=== PATIENT | female | born 1980 | race Caucasian/White ===

== ENCOUNTER 2020-01-23 15:54 | Emergency (ER) | payer BC, SELFPAY ==
[2020-01-23 15:55] VITALS: BP 109/72; PULSE 99; RESP 16; TEMP 36.6; O2SAT 99
--- NOTE | 2020-01-23 16:14 | ED.ABDPAIN ---
HPI - Abdominal Pain General Chief Complaint: Headache <Apolinar Lopez PA-C - Last Filed: 01/23/20 17:50> Stated Complaint: migraine <Apolinar Lopez PA-C - Last Filed: 01/23/20 17:50> Time Seen by Provider: 01/23/20 16:03 <Apolinar Lopez PA-C - Last Filed: 01/23/20 17:50> Source: patient <Apolinar Lopez PA-C - Last Filed: 01/23/20 17:50> Mode of arrival: ambulatory <Apolinar Lopez PA-C - Last Filed: 01/23/20 17:50> Limitations: no limitations <Apolinar Lopez PA-C - Last Filed: 01/23/20 17:50> History of Present Illness HPI narrative: Patient is a 39-year-old female who presents to emergency department for evaluation of migraine headache with history of migraines has been present for 2 days took Imitrex and Toradol with no improvement patient denies injury trauma or recent illness notes that she has had some associated nausea and emesis. Patient on arrival in mild acute pain distress. <Apolinar Lopez PA-C - Last Filed: 01/23/20 17:50> Related Data Allergies/Adverse Reactions: Allergies Allergy/AdvReac Type Severity Reaction Status Date / Time Penicillins Allergy Unknown Unknown Verified 01/23/20 16:24 vortioxetine Allergy Unknown Unknown Verified 01/23/20 16:24 <Apolinar Lopez PA-C - Last Filed: 01/23/20 17:50> Review of Systems Review of Systems: All systems reviewed & are unremarkable except as noted in HPI and below <Apolinar Lopez PA-C - Last Filed: 01/23/20 17:50> PMFSH Past Medical History Medical History: Medical History Migraine headache <Apolinar Lopez PA-C - Last Filed: 01/23/20 17:50> Social History Social History: Social History Smoking status: Never smoker Alcohol intake: current <MEGAN Salazar Last Filed: 01/23/20 17:50> Exam Narrative: Exam Narrative: GENERAL: Well-appearing, well-nourished, and in mild acute pain distress. HEAD: Normocephalic, atraumatic. EYES: PERRLA and EOMI. ENT: Nares clear, no rhinorrhea or epistaxis. Mucous membranes moist. Oropharynx without tonsillar hypertrophy exudate or other lesions. NECK: Supple. No adenopathy or masses. CHEST: Clear to auscultation. No respiratory distress. No wheezes rales or rhonchi HEART: Regular rate and rhythm. No murmur heard. EXTREMITIES: Normal range of motion. No edema. SKIN: Warm, dry, no rash. NEURO: No focal deficits. Alert and oriented x3. Cranial nerves II through XII grossly intact. PSYCH: Normal mood and affect. <MEGAN Salazar Last Filed: 01/23/20 17:50> Course Course Emergency Course: Patient in the room in no distress sleeping made aware of recommendations for follow-up with primary care nontoxic afebrile without emesis <MEGAN Salazar Last Filed: 01/23/20 17:50> Vital Signs Vital signs: Vital Signs Temperature 97.8 F 01/23/20 15:55 Pulse Rate 99 01/23/20 15:55 Respiratory Rate 16 01/23/20 15:55 Blood Pressure 109/72 01/23/20 15:55 Pulse Oximetry 99 01/23/20 15:55 Temperature 97.8 F 01/23/20 15:55 Pulse Rate 65 01/23/20 18:05 Respiratory Rate 14 01/23/20 18:05 Blood Pressure 132/85 01/23/20 18:05 Pulse Oximetry 100 01/23/20 18:05 <MEGAN Salazar Last Filed: 01/23/20 17:50> Vital Signs Temperature 97.8 F 01/23/20 15:55 Pulse Rate 99 01/23/20 15:55 Respiratory Rate 16 01/23/20 15:55 Blood Pressure 109/72 01/23/20 15:55 Pulse Oximetry 99 01/23/20 15:55 Temperature 97.8 F 01/23/20 15:55 Pulse Rate 65 01/23/20 18:05 Respiratory Rate 14 01/23/20 18:05 Blood Pressure 132/85 01/23/20 18:05 Pulse Oximetry 100 01/23/20 18:05 <Shelley Vigil MD - Last Filed: 02/06/20 13:10> MDM - Abdominal Pain MDM Narrative Medical decision making narrative: Patients headache was not
[2020-01-23] MEDS: KETOROLAC 30 MG/ML VIAL (*BKC) IV PUSH (16:24)
[2020-01-23] MEDS: SODIUM CHLORIDE 0.9% IV 1,000 ML 999 ML IV CONT (16:25)
[2020-01-23] MEDS: PROCHLORPERAZINE EDISYLATE 10 MG/2 ML VIAL IV PUSH (16:25)
[2020-01-23] MEDS: MAGNESIUM SULF 2 GM/WATER 50ML 2 GM/50 ML BAG IVPB (17:45)
--- NOTE | 2020-01-23 18:00 | PC.NURSE ---
Pt states If you arent going to give me pain meds, get me out of here now. Discussed POC w/ pt, who states Well none of that is gonna work, normally they just give me a pain shot and let me go home and sleep. Get my papers, Im outta here. Romaine GUZMAN aware.
[2020-01-23 18:05] VITALS: BP 132/85; PULSE 65; RESP 14; O2SAT 100
== END 2020-01-23 18:07 | disposition home or self-care (01) ==
PROVIDERS: Emergency Provider Emergency Medicine; PCP Nurse Practitioner Family
DX: G43.909 Migraine, unspecified, not intractable, without status migrainosus (principal)
CPT/HCPCS: 96361; 96365; 96375; 99284; J0780; J1200; J1885; J3475; J7030

== ENCOUNTER 2021-12-01 10:48 | Outpatient (CLI) | payer BC, SELFPAY ==
[2021-12-01 11:20] LABS: Basophils Absolute Auto 0.1 K/mm3 (0.0-0.1); Basophils Percent Auto 0.8 % (0.2-1.2); Eosinophils Absolute Auto 0.2 K/mm3 (0-0.3); Eosinophils Percent Auto 1.8 % (0-4.4); Hematocrit 41.3 % (37.0-47.0); Immature Granulocyte Absolute 0.02 K/mm3 (0.00-0.031); Immature Granulocyte Percent A 0.2 % (0-0.5); Lymphocytes Absolute Auto 3.42 K/mm3 (0.9-3.2); Lymphocytes Percent Auto 40.4 % (18.3-44.2); Mean Corpuscular HGB Conc 33.9 g/dl (32-36); Mean Corpuscular Hemoglobin 32.3 pg (26-34); Mean Corpuscular Volume 95.2 fl (80-100); Mean Platelet Volume 9.4 fl (7.4-10.4); Monocytes Absolute Auto 0.5 K/mm3 (0.1-0.6); Neutrophils Absolute Auto 4.3 K/mm3 (1.3-6.7); Neutrophils Percent Auto 50.8 % (45.5-73.1); Platelet Count Result 513 k/mm3 (150-375); Red Blood Count 4.34 M/mm3 (4.2-5.4); Red Cell Distribution Width 14.5 % (11.5-14.5); White Blood Count 8.5 K/mm3 (4.5-10.0)
[2021-12-01 11:25] LABS: Add Urine Microscopic? YES; Appearance Urine Cloudy (Clear); Bilirubin Urine Negative (Negative); Blood Urine 2+ (Negative); Color Urine Yellow (Yellow); Glucose Urine UA Negative (Negative); Ketones Urine Negative (Negative); Leukocyte Esterase Ur Trace LEU/UL (NEGATIVE); Mucus Urine Rare /lpf; Nitrate Urine Negative (Negative); Protein Urine Negative (Negative); Specific Grav Ur 1.018 (1.001-1.035); Squamous Epithelial Cell Urine Rare /hpf (Few); Urobilinogen Urine Negative mg/dL (<2.0); WBC Urine 0-3 /hpf (0-3)
[2021-12-01 11:31] LABS: Alanine Aminotransferase 23 U/L (4-35); Albumin Level 4.3 g/dL (3.5-5.1); Alkaline Phosphatase 118 U/L (38-126); Anion Gap 8 mmol/L (8-16); Aspartate Amino Transferase 27 U/L (14-36); Bilirubin,Total 0.2 mg/dL (0.2-1.3); Blood Urea Nitrogen 12 mg/dL (7-17); Calcium 9.1 mg/dL (8.4-10.2); Carbon Dioxide 24 mmol/L (22-30); Chloride 107 mmol/L (98-107); Cholesterol 227 mg/dL (0-200); Estimated Glomerular Filt Rate > 60; Glucose 105 mg/dL (65-110); HDL Direct 46 mg/dL; Potassium 4.4 mmol/L (3.4-5.0); Sodium 139 mmol/L (137-145); Triglycerides 95 mg/dL (<150)
[2021-12-01 11:41] LABS: Amphetamine Screen Urine Positive (Negative); Barbiturate Screen Urine Negative (Negative); Benzodiazepines Screen Urine Negative (Negative); Cannabinoid Screen Urine Positive (Negative); Cocaine Screen Urine Negative (Negative); Hemoglobin A1C 5.1 % (<5.7); Methadone Screen Urine Negative (Negative); Opiate Screen Urine Negative (Negative); Phencyclidine Screen Urine Negative (Negative)
[2021-12-01 11:43] LABS: LDL Cholesterol Direct 147 mg/dL
== END 2021-12-01 10:49 | disposition home or self-care (01) ==
LOC: ANHLAB 10:54
PROVIDERS: PCP Nurse Practitioner Family
DX: Z79.899 Other long term (current) drug therapy (principal)
CPT/HCPCS: 36415; 80053; 80061; 80307; 81001; 83036; 84443; 85025

== ENCOUNTER 2022-11-15 09:00 | Outpatient (CLI) | payer BC, SELFPAY ==
--- NOTE | 2022-11-15 11:00 | NEURO_ITS ---
Impression: Patient reports a history of numbness in both hands, right more than left. # Normal nerve conduction study. # Normal needle/EMG exam. # Clinical correlation recommended. Motor Nerve Conduction Upper Extremities Median Nerve Conduction Velocity (m/sec) Terminal Latency (msec) Response Voltage(mV) Elbow-Wrist Wrist Elbow Wrist Right 60 3.1 5 9 Left 60 2.9 4 6 Ulnar Nerve Conduction Velocity (m/sec) Terminal Latency (msec) Response Voltage(mV) Above Elbow Below Elbow Wrist Above Elbow Below Elbow Wrist Right 59 58 2.0 5 6 6 Left 57 58 2.2 5 5 6 F-Wave Latency Median (ms) Ulnar (ms) Right 25.6 25.0 Left 26.1 25.5 Sensory Nerve Conduction Upper Extremities Median Nerve Stimulation Terminal Latency (msec) Wrist/Digit Response Voltage (uV) Wrist Right 2.8/2.9 68/69 Left 2.7/2.8 65/62 Ulnar Nerve Stimulation Terminal Latency (msec) Wrist/Digit Response Voltage (uV) Wrist Right 2.4 49 Left 2.3 77 Radial Nerve Terminal Latency (msec) Response Voltage(mV) Right 1.7 45 Left 2.0 45 Left Right Muscles Examined Fibrillation Fasciculation Scarcity Voltage Duration Left Right Left Right Left Right Left Right Left Right Deltoid Biceps X X Brachioradialis Triceps X X Pronator Teres X X Ext Indicis X X Ext Digitorum X X Abd Poll Brev X X 1st Dorsal Interosseus Paraspinals MTDD
== END 2022-11-15 09:01 | disposition home or self-care (01) ==
PROVIDERS: PCP Nurse Practitioner Family; Visit Provider Nurse Practitioner Family
DX: M25.531 Pain in right wrist (principal); M25.532 Pain in left wrist
CPT/HCPCS: 95886; 95911

== ENCOUNTER 2023-01-04 12:51 | Outpatient (CLI) | payer BC, SELFPAY ==
--- NOTE | 2023-01-04 12:58 | ECG_ITS ---
Measurements Intervals [place] Rate: 72 P: 39 NV: 146 QRS: 13 QRSD: 89 T: 17 QT: 395 QTc: 435 Interpretive Statements SINUS RHYTHM LOW QRS VOLTAGE IN PRECORDIAL LEADS BORDERLINE ECG COMPARED TO ECG 02/03/2019 11:37:09 NO SIGNIFICANT CHANGES Electronically Signed On 01-05-2023 14:58:26 CDT by Nestor Kelley M.D.
== END 2023-01-04 12:52 | disposition home or self-care (01) ==
LOC: ANHSURGERY 12:55
PROVIDERS: PCP Nurse Practitioner Family; Visit Provider Obstetrics & Gynecology
DX: N87.9 Dysplasia of cervix uteri, unspecified (principal); F17.210 Nicotine dependence, cigarettes, uncomplicated; Z01.818 Encounter for other preprocedural examination; R94.31 Abnormal electrocardiogram [ECG] [EKG]
CPT/HCPCS: 36415; 86850; 86900; 86901; 93005

== ENCOUNTER 2023-01-09 01:50 | Day surgery (SDC) | payer BC, SELFPAY ==
[2023-01-02 11:35] VITALS: BMI 35.4
--- NOTE | 2023-01-02 11:42 | PC.NURSE ---
Report to the Outpatient Waiting Room, entrance under the green pavilion located off [facility], at time 10:00 on date 01/09/23. Planned Procedure Time: 12:00. Time changes happen often and if your time is changed the preop area will call you the afternoon before. - You and your visitor will be asked to self-screen and do not enter if you have any COVID symptoms. - Only one visitor is requested with a max of two and NO children visitors are allowed at this time. - The patient visitor may be requested to leave or wait in car when not with patient due to distancing restrictions. - A mask is optional within the hospital at this time. Patients may have clear liquids (water, carbonated beverages, clear teas, apple juice) until 3 hours prior to surgery (9:00) with a maximum of 20 ounces. - No food from midnight until time of surgery Take the following medications with a SIP of water the morning of surgery: RUTHANN LIM DO NOT STOP ANY OF YOUR OTHER PRESCRIPTION MEDICATIONS PRIOR TO SURGERY?EXCEPT THE FOLLOWING Medications to discontinue per physician: N/A Date to take last dose: N/A Please no make-up, nail mosotho, hairspray, perfume, deodorant, or body powder the day of surgery. No jewelry (including any body piercings) or valuables the day of surgery, leave them at home. Please take a shower or bath the night before, or the morning of, surgery with an antibacterial soap. Wear comfortable, loose fitting clothing. - Jewelry must be removed prior to entering the operating room. Rings and piercings that are not removed may be cut off. - The hospital will not accept responsibility for valuables. - Please leave all valuables, including medications, at home the day of surgery. If you are going home after surgery, a licensed line haul truck driver must drive you home. - NO public transportation without another adult if you receive anesthesia. - We recommend that an adult stay with you for 24 hours following discharge. - We also recommend that you do not drive, make important decision, drink alcoholic beverages, or take any drugs that were not prescribed by your health care provider for at least 24 hours after your discharge time. Follow any additional instructions given to you from your surgeon. If you or anyone in your household have experienced Covid symptoms in the past week, please notify your surgeon or the nurse liaison at the phone number below for possible testing. Telephone instructions given to MATTHEW FELIX and asked if any additional questions and then verbalized understanding. Patient advised to call surgeon office or pre surgery nurse liaison [phone] if any additional questions.
--- NOTE | 2023-01-08 12:26 | PCCCNOTE ---
Per pre-reg notes, CPT codes require prior authorization, called to Dr. Simon' office was lunch time and went to paging, she transferred to office VM. Left VM requesting follow up and return call from office regarding authorization.
--- NOTE | 2023-01-08 14:19 | PCCCNOTE ---
Phone call to Dr. Moreland's office spoke with [employer], she states that through their system NO Prior Auth is required for codes 85947 and 42632, they have a call reference # of [id number].
[2023-01-09] VITALS (9 sets, daily range): BP systolic 110–141; BP diastolic 59–82; PULSE 59–98; RESP 14–20; TEMP 36.6–37.1; O2SAT 93–98
[2023-01-09] MEDS: ACETAMINOPHEN 500 MG TABLET 1000 MG PO (11:16)
[2023-01-09] MEDS: LACTATED RINGERS 1,000 ML 30 ML IV CONT ×2 (11:20→15:05)
[2023-01-09] MEDS: KETOROLAC 15 MG/ML VIAL (*BKC) IV PUSH (11:25)
--- NOTE | 2023-01-09 11:44 | SUR.PREOP ---
1130-SCRATCH AREA NOTED TO RIGHT OF UMBILICAL AREA-PT STATES IS A CAT SCRATCH . WILL INFORM DR. MAHMOOD.
--- NOTE | 2023-01-09 12:06 | P.PNAN_ITS ---
Anes - Initial Pre Proc Eval Procedure: Operation Date: 01/09/23 12:00 Proposed Procedures p Robotic Assisted Hysterectomy with Bilateral Salpingectomy - Madelyn Morealnd MD Date/Time: 01/09/23 12:06 Surgeon: Madelyn Moreland MD Pre Op Diagnosis: cervical TY 3, severe dysplasia Patient Data Age: 42 Gender: F Height: 1.6 m Weight: 93.5 kg Last Vital Signs Temp 97.8 F 01/09/23 10:41 Pulse 79 01/09/23 10:41 Resp 20 01/09/23 10:41 BP 121/59 L 01/09/23 10:41 Pulse Ox 97 01/09/23 10:41 O2 Del Method Room Air 01/09/23 10:41 Allergies Allergy/AdvReac Type Severity Reaction Status Date / Time Penicillins Allergy Unknown Unknown Verified 01/09/23 10:42 vortioxetine AdvReac Unknown Vomiting Verified 01/09/23 10:42 Home Medications Medication Instructions Recorded Confirmed Type aripiprazole 30 mg tablet (Abilify) 30 mg PO DAILY 01/02/23 01/09/23 History benzonatate 200 mg capsule 200 mg PO Q8H PRN Cough 01/02/23 01/09/23 History dextroamphetamine-amphetamine 20 20 mg PO DAILY 01/02/23 01/09/23 History mg tablet (Adderall) diclofenac sodium 75 mg 75 mg PO BID 01/02/23 01/09/23 History tablet,delayed release ondansetron 8 mg disintegrating 8 mg PO Q8H PRN Nausea 01/02/23 01/09/23 History tablet paroxetine HCl 40 mg tablet (Paxil) 40 mg PO QAM 01/02/23 01/09/23 History sumatriptan succinate 100 mg tablet 100 mg PO ONCE 01/02/23 01/09/23 History Patient hx anesthesia problems: none Family hx anesthesia problems: none Results Review: All pre-operative results and documents have been reviewed as part of the pre- operative evaluation. [facility] Past Medical History Medical History (Updated 01/24/20 @ 00:00 by Scarlett Chi) Migraine headache Social History Social History Smoking packs per day: 1 Smoking cigarettes per day: 20.0 Years smoked: 25 Smoking pack-years: 25.00 Smoking status: Current every day smoker Tobacco type: cigarettes Alcohol intake: current Drinks per week: 4 Substance use: current Substance use type: marijuana Living arrangements: with family Spiritual care concerns: No Anes - Eval Final PreProcedure Day of Procedure 01/09/23 12:06 Patient weight: obese Heart: regular rate and rhythm Lungs: clear to auscultation Airway: Mallampati scale class II Neurological: alert and oriented Last oral intake: >/= 8 hours ASA classification: III Emergent: no Anesthetic plan: proceed Anesthesia type and monitoring: general ETT and standard monitoring Results Review: All pre-operative results and documents have been reviewed as part of the pre- operative evaluation. Informed Consent: The patient's anesthetic plan and its attendant risks and benefits were discussed with the patient/family/POA. Questions were solicited and answers provided to the satisfaction of the patient/family/POA.
--- NOTE | 2023-01-09 12:12 | WPDHPUPDATE1 ---
History and Physical Update Update Date/Time: 01/09/23 12:12 History and Physical has been reviewed, including an updated exam of the patient. There are NO changes in the patient's condition. Risks, benefits, and alternatives have been discussed and questions answered. Patient agrees to proceed with procedure.
--- NOTE | 2023-01-09 12:29 | SUR.PREOP ---
1225-DR. MAHMOOD AWARE OF CAT SCRATCH ON ABDOMEN, WILL PROCEED.
[2023-01-09] MEDS: ceFAZolin 2 GM/D5W 50 ML 2 GM/50 ML BAG IVPB (12:36)
--- NOTE | 2023-01-09 14:57 | W.PM.PROC2 ---
Procedure Note - Detailed Date of Procedure 01/09/23 Pre-op Diagnosis cervical TY 3, severe dysplasia Post-op Diagnosis Same Procedure Performed Robot assisted Total hysterectomy with bilateral salpingectomy. Surgeon Madelyn Moreland MD Anesthesia General Indications heavy vaginal bleeding, pelvic pain Findings normal-appearing uterus, ovaries, and left tube, right tube was partially resected. Some scarring over the posterior cul-de-sac peritoneum. Description of Procedure This patient was taken to the operating room. She was prepped and draped in the dorsal lithotomy position after induction of general anesthesia. The uterine manipulator and Johnathan cup were placed. This was done with a speculum and tenaculum. The speculum was placed. The cervix was grasped with a tenaculum. The stay sutures were placed at 3 and 9:00 a.m.. The stay sutures of 0 Vicryl were tied to the appropriately Size scope after it was slipped around the cervix.. The tip of the FRANCES manipulator was placed in the intrauterine cavity. The cup was slid into place around the cervix and into the fornices. It was locked into place. The sutures were then wrapped around the handle and tied under tension. A 8 mm skin incision was made in the left upper quadrant the abdomen. a 5 mm Visiport trocar was inserted into abdominal cavity and pneumoperitoneum was achieved. A 8 mm supraumbilical incision was made and a 8 mm trocar was inserted into the intrauterine cavity under direct visualization of the scope. an 8 mm incision was made in the right upper quadrant of the abdomen and an 8 mm robotic trocar was placed the inter uterine cavity under direct visualization the scope. An 11 mm trocar was inserted in the right upper quadrant of the abdomen rectal is a cystoscope after an incision was made there as well. The robot was docked. Electronic Orientation of the robot was performed. Bilateral ureteral lysis was performed. This was done from the pelvic brim down to the uterine artery. This was done with careful dissection using sharp and blunt dissection. The fallopian tubes were removed bilaterally. The mesosalpinx around the fallopian tubes were cauterized transected with LigaSure cautery. This was done in a bilateral fashion from the ovary to the uterine cornua. The fallopian tube was transected at the uterine cornu and amputated. The tube was taken out the left lower quadrant trocar site. In a stepwise fashion along the lateral aspects of the uterus the round ligament and broad ligaments were cauterized transected down to the level of the uterine arteries. A bladder flap was created in the bladder was moved distally to the end of the cervix and over the Johnathan cup. The bilateral uterine arteries were cauterized and transected. Colpotomy was then performed. In a circumferential fashion the vagina was transected using unipolar cautery. The incision was made down on the Johnathan cup. The uterus and cervix were taken out through the vagina. A pneumo occluder was placed in the vagina. The vaginal cuff was closed with a 0 V lock suture in a running fashion. The pelvis was irrigated with copious amounts antibiotic irrigation. The ureters were again examined and found to be intact and flowing freely under the uterine arteries into the bladder. The bladder was intact. It was examined directly. The vagina was irrigated with Betadine solution after removal of the Pneumo occluder. the trocars were removed after the robot was undocked. The skin was closed with subacute or Dermabond. The patient was taken to recovery room. She was stable condition. Sponge lap and needle counts were correct x2. Estimated Blood Loss 125 Urine Output 800 Drains Yes Packing No Pathology Yes Complications No immediate complications Condition Stable Disposition Floor
[2023-01-09] MEDS: fentaNYL CITRATE INJ (*CRX) 100 MCG/2 ML VIAL 25 MCG IV PUSH ×3 (15:15→15:48)
[2023-01-09] MEDS: DEXTROSE 5%/0.45% SOD CHL 1,000 ML 125 ML IV CONT (16:52)
--- NOTE | 2023-01-09 17:04 | ADMGEN ---
1617-This patient, Cheli Montanez, was admitted to OB 2nd Floor Room 279-00. Patient/family oriented to hospital policies and general routines including ID bracelet, bed and alarms, visiting hours, pain management, procedures, bathroom and other care routines, personal items, smoking policy, room service/diet, and visiting hours. Information on how to activate the Rapid Response Team has been discussed. Patient/Family are encouraged to report perceived risks to care and to ask questions if they do not understand what they are told or what they should do.
[2023-01-09] MEDS: KETOROLAC 30 MG/ML VIAL (*BKC) IV PUSH (19:44)
[2023-01-09] MEDS: ONDANSETRON INJ 4 MG/2 ML VIAL IV PUSH (21:10)
[2023-01-09] MEDS: PROMETHAZINE HCL 25 MG/ML AMPUL 12.5 MG IV PUSH (23:50)
[2023-01-10 05:30] VITALS: BP 130/78; PULSE 77; RESP 16; TEMP 36.9
[2023-01-10 07:25] VITALS: BP 118/70; PULSE 71; RESP 16; TEMP 37.4; O2SAT 96
--- NOTE | 2023-01-10 08:15 | PM.GYNPNOP ---
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 Postoperative Procedures: Procedures Operation Date: 01/09/23 12:00 Actual Procedure Side Surgeon p Robotic Assisted Hysterectomy with Bilateral Salpingectomy Bilateral Madelyn Moreland MD Postoperative day: 1 Postoperative status: doing well Postoperative plan: see orders Time Spent With Patient Time: Total time spent is greater than 50% in coordination of care (as documented) at patient's floor/unit and/or counseling patient: Time with patient: less than 15 minutes WEED COOKING OPERATOR- PN:Subj Post-Op Subjective Date/time seen: 01/10/23 08:15 Subjective: patient reports feeling better, patient has no complaints and pain is well controlled Exam Const: General: healthy appearing, comfortable and no acute distress Resp: Auscultation: clear to auscultation bilaterally, no rales, no rhonchi and no wheezes Cardio: Rate: regular rate Heart sounds: no click, no murmurs and no rubs GI: Inspection: non-distended Auscultation: normal bowel sounds Extrem: General: normal to inspection, no pedal edema and no calf tenderness WEED COOKING OPERATOR - PN: Obj Data Vital Signs Vital Signs: Vital Signs - 24 hr 01/09/23 10:41 01/09/23 15:05 01/09/23 15:15 Temperature 97.8 F 98.8 F Pulse Rate 79 89 86 Respiratory Rate 20 20 15 Blood Pressure 121/59 L 129/64 115/59 L Pulse Oximetry 97 98 95 Oxygen Delivery Room Air Simple Face Mask Nasal Cannula Oxygen Flow Rate 6 3 01/09/23 15:30 01/09/23 15:45 01/09/23 16:00 Temperature Pulse Rate 87 98 88 Respiratory Rate 17 14 15 Blood Pressure 120/68 126/75 120/65 Pulse Oximetry 93 98 96 Oxygen Delivery Nasal Cannula Nasal Cannula Nasal Cannula Oxygen Flow Rate 3 3 3 01/09/23 17:00 01/09/23 17:00 01/09/23 19:40 Temperature 97.8 F 97.8 F Pulse Rate 82 82 62 Respiratory Rate 16 16 14 Blood Pressure 131/78 141/82 H Pulse Oximetry 95 95 95 Oxygen Delivery Room Air Oxygen Flow Rate 01/09/23 19:40 01/09/23 23:55 01/10/23 05:30 Temperature 98.0 F 98.4 F Pulse Rate 62 59 L 77 Respiratory Rate 14 16 16 Blood Pressure 110/68 130/78 Pulse Oximetry 95 Oxygen Delivery Room Air Oxygen Flow Rate Intake/Output Intake/Output: Intake & Output 01/07/23 01/08/23 01/09/23 01/10/23 23:59 23:59 23:59 23:59 Intake Total 351 400 Output Total 990 300 Balance -639 100 Meds/Results Medications: Active Medications Generic Name Dose Route Start Last Admin Trade Name Freq PRN Reason Stop Dose Admin Hydrocodone Bitart/Acetaminophen 1 tab 01/09/23 16:09 Hydrocodone/Acetaminophen (*Crx) 5-325 Mg Tablet PO Q3H PRN Pain Rated 5 or Less Hydrocodone Bitart/Acetaminophen 1 tab 01/09/23 16:09 Hydrocodone/Acetaminophen (*Crx) 10-325 Mg Tablet PO Q3H PRN Pain Rated 6 or Greater Aripiprazole 30 mg 01/10/23 09:00 Aripiprazole 10 Mg Tablet PO 02/09/23 08:59 DAILY NIDIA Benzonatate 200 mg 01/09/23 16:09 Benzonatate 100 Mg Capsule PO Q8H PRN Cough Dextrose/Sodium Chloride 1,000 mls @ 125 mls/hr 01/09/23 16:09 01/09/23 17:30 Dextrose 5% Sodium Chloride 0.45% IV CONT 125 mls/hr .Q8H NIDIA Infusion Ibuprofen 600 mg 01/09/23 16:09 Ibuprofen 600 Mg Tablet PO Q6H PRN Cramping Ketorolac Tromethamine 30 mg 01/09/23 16:09 01/09/23 19:44 Ketorolac 30 Mg/Ml Vial (*Bkc) IV PUSH 01/14/23 16:08 30 mg Q6H PRN Administration Pain Rated 4-6 Miscellaneous Information 0 each 01/09/23 00:01 Adderall Is Nonformulary - Can This Be Held While Patient Is In Hospital? XX 02/08/23 00:00 CLARIFY NIDIA Naloxone HCl 0.1 mg 01/09/23 16:09 Naloxone Hcl 0.4 Mg/Ml Vial IV PUSH Q2M PRN Respiratory rate less than 10 Non-Formulary Medication 20 mg 01/10/23 09:00 Dextroamphetamine-Amphetamine [Adderall] PO 02/09/23 08:59 DAILY NIDIA Ondansetron HCl 4 mg 01/09/23 16:09 01/09/23 21:10 Ondansetron Inj 4 Mg/2 Ml Vial IV PUSH 4 mg Q6H PRN Administration Nausea
[2023-01-10 09:00] VITALS: PULSE 71; RESP 16; O2SAT 96
[2023-01-10] MEDS: ARIPiprazole 10 MG TABLET 30 MG PO (09:08)
[2023-01-10] MEDS: PARoxetine 20 MG TABLET 40 MG PO (09:09)
--- NOTE | 2023-01-10 09:33 | WPDANESPN ---
Anes - Prog Note Post-Op Date/Time: 01/10/23 09:33 Cardiovascular status: normal Respiratory status: normal Airway patency: baseline Mental status: baseline Post-Op hydration status: normal Vital Signs: Last Vital Signs Temp 37.4 C 01/10/23 07:25 Pulse 71 01/10/23 09:00 Resp 16 01/10/23 09:00 BP 118/70 01/10/23 07:25 Pulse Ox 96 01/10/23 09:00 O2 Del Method Room Air 01/10/23 09:00 O2 Flow Rate 3 01/09/23 16:00 Pain Score (VAS): 3 I/O: Intake & Output 01/09/23 01/10/23 01/10/23 23:59 07:59 15:59 Intake Total 301 400 Output Total 190 300 Balance 111 100 Post-procedural complaints: none Patient Feedback: Patient satisfied with anesthetic care.
--- NOTE | 2023-01-10 11:21 | PC.NURSE ---
0930-RN encouraged pt to eat solid breakfast but pt refused; pt did tolerate clear liquid tray this am.
== END 2023-01-10 11:20 | disposition home or self-care (01) ==
LOC: ANHSURGERY 09:58 → ANHOB2 16:14
PROVIDERS: PCP Nurse Practitioner Family; Visit Provider Obstetrics & Gynecology
PROC: (CPT 58571; principal; 2023-01-09 12:00)
DX: D06.9 Carcinoma in situ of cervix, unspecified (principal); N71.1 Chronic inflammatory disease of uterus; N70.91 Salpingitis, unspecified; N73.6 Female pelvic peritoneal adhesions (postinfective); N93.9 Abnormal uterine and vaginal bleeding, unspecified; R10.2 Pelvic and perineal pain; F17.210 Nicotine dependence, cigarettes, uncomplicated; F12.90 Cannabis use, unspecified, uncomplicated; E66.9 Obesity, unspecified; Z68.36 Body mass index [BMI] 36.0-36.9, adult
CPT/HCPCS: 58571; S2900; 36415; 86850; 86900; 86901; 88307; 93005; 99199; A9270; J0690; J1100; J1170; J1885; J2250; J2405; J2550; J2704; J2710; J3010; J7030; J7120

== ENCOUNTER 2024-01-20 09:47 | Outpatient (CLI) | payer BC, SELFPAY ==
[2024-01-20 10:30] LABS: Hematocrit 42.3 % (37.0-47.0); Hemoglobin 14.1 g/dL (12.0-15.0); Mean Corpuscular HGB Conc 33.3 g/dl (32-36); Mean Corpuscular Hemoglobin 31.8 pg (26-34); Mean Corpuscular Volume 95.3 fl (80-100); Mean Platelet Volume 9.8 fl (7.4-10.4); Platelet Count Result 468 k/mm3 (150-375); Red Blood Count 4.44 M/mm3 (4.2-5.4); Red Cell Distribution Width 14.1 % (11.5-14.5); White Blood Count 7.7 K/mm3 (4.5-10.0)
[2024-01-20 10:37] LABS: Appearance Urine Cloudy (Clear); Bacteria Urine Rare /hpf; Bilirubin Urine Negative (Negative); Blood Urine 1+ (Negative); Color Urine Yellow (Yellow); Glucose Urine UA Negative (Negative); Ketones Urine Negative (Negative); Leukocyte Esterase Ur Negative LEU/UL (Negative); Nitrate Urine Negative (Negative); Non Pathogenic Casts 0-2; Protein Urine Negative (Negative); Specific Grav Ur 1.015 (1.001-1.035); Squamous Epithelial Cell Urine Moderate /hpf (Few); Urobilinogen Urine 0.2 mg/dL (<2.0); WBC Urine 0-5 /hpf (0-3)
[2024-01-20 10:49] LABS: Alanine Aminotransferase 49 U/L (6-35); Albumin Level 4.1 g/dL (3.5-5.1); Alkaline Phosphatase 112 U/L (38-126); Anion Gap 5 mmol/L (4-12); Aspartate Amino Transferase 37 U/L (14-36); Bilirubin,Total 0.3 mg/dL (0.2-1.3); Blood Urea Nitrogen 7 mg/dL (7-17); Carbon Dioxide 23 mmol/L (22-30); Chloride 106 mmol/L (98-107); Cholesterol 231 mg/dL (0-200); Estimated Glomerular Filt Rate > 60; Glucose 116 mg/dL (65-110); HDL Direct 43 mg/dL; Potassium 3.9 mmol/L (3.4-5.0); Sodium 134 mmol/L (137-145); Triglycerides 196 mg/dL (<150)
[2024-01-20 10:57] LABS: Hemoglobin A1C 5.2 % (<5.7)
[2024-01-20 11:00] LABS: LDL Cholesterol Direct 162 mg/dL
[2024-01-20 11:10] LABS: Add Urine Microscopic? YES
[2024-01-21 22:54] LABS: Amphetamines POSITIVE ng/mL (<500); Barbiturates NEGATIVE ng/mL (<300); Benzodiazepines NEGATIVE ng/mL (<100); Cocaine Metabolite NEGATIVE ng/mL (<150); Marijuana Metabolite POSITIVE ng/mL (<20); Methadone Metabolite NEGATIVE ng/mL (<100); Opiates POSITIVE ng/mL (<100); Oxidant NEGATIVE mcg/mL (<200); pH 6.1 (4.5-9.0)
== END 2024-01-20 09:48 | disposition home or self-care (01) ==
PROVIDERS: PCP Nurse Practitioner Family
DX: Z01.89 Encounter for other specified special examinations (principal); Z79.899 Other long term (current) drug therapy
CPT/HCPCS: 36415; 80053; 80061; 80307; 81001; 83036; 84443; 85027

== ENCOUNTER 2024-04-22 10:30 | Outpatient (CLI) | payer BC, SELFPAY ==
--- NOTE | 2024-04-22 10:47 | ECG_ITS ---
Test Date: 2024-04-22 10:52:00 Measurements Intervals [place] Rate: 86 P: 59 IN: 136 QRS: 7 QRSD: 84 T: 28 QT: 364 QTc: 436 Interpretive Statements SINUS RHYTHM WITH SINUS ARRHYTHMIA LOW QRS VOLTAGE IN PRECORDIAL LEADS NONSPECIFIC ST-T WAVE ABNORMALITY- ANTEROLAT/INF LEADS BASELINE ARTIFACT- I, III, AVR, AVL, AVF, V4-V6 BORDERLINE ECG No previous ECG available for comparison Electronically Signed On 04-22-2024 12:30:32 CDT by Timothy Maldonado D.O.
== END 2024-04-22 10:31 | disposition home or self-care (01) ==
PROVIDERS: PCP Family Medicine; Visit Provider Urology
DX: Z01.810 Encounter for preprocedural cardiovascular examination (principal); F17.200 Nicotine dependence, unspecified, uncomplicated; I49.8 Other specified cardiac arrhythmias
CPT/HCPCS: 93005

== ENCOUNTER 2024-04-24 00:14 | Day surgery (SDC) | payer BC, SELFPAY ==
--- NOTE | 2024-04-19 09:35 | PM.IMHP ---
H&P: HPI History of Present Illness Date/Time: 04/19/24 09:35 Chief Complaint: vaginal mesh exposure Narrative: history of urethral sling in September 2023. Sexual partner can feel an area of exposed mesh. She desires removal Review of Systems Review of Systems: All systems reviewed & are unremarkable except as noted in HPI and below PMFSH Past Medical History Medical History (Updated 04/19/24 @ 09:36 by Michael Bautista MD) Migraine headache Social History Social History Smoking packs per day: 1 Smoking cigarettes per day: 20.0 Years smoked: 25 Smoking pack-years: 25.00 Smoking status: Current every day smoker Tobacco type: cigarettes Alcohol intake: current Drinks per week: 4 Substance use: current Substance use type: marijuana Living arrangements: with family Spiritual care concerns: No Meds Home Medications and Allergies Home Medications Medication Instructions Recorded Confirmed Type aripiprazole 30 mg tablet (Abilify) 30 mg PO DAILY 01/02/23 01/09/23 History benzonatate 200 mg capsule 200 mg PO Q8H PRN Cough 01/02/23 01/09/23 History dextroamphetamine-amphetamine 20 20 mg PO DAILY 01/02/23 01/09/23 History mg tablet (Adderall) diclofenac sodium 75 mg 75 mg PO BID 01/02/23 01/09/23 History tablet,delayed release ondansetron 8 mg disintegrating 8 mg PO Q8H PRN Nausea 01/02/23 01/09/23 History tablet paroxetine HCl 40 mg tablet (Paxil) 40 mg PO QAM 01/02/23 01/09/23 History sumatriptan succinate 100 mg tablet 100 mg PO ONCE 01/02/23 01/09/23 History hydrocodone 5 mg-acetaminophen 325 1 - 2 tablet PO Q6H PRN pain #25 01/10/23 Rx mg tablet tabs Allergies Allergy/AdvReac Type Severity Reaction Status Date / Time Penicillins Allergy Unknown Unknown Verified 01/09/23 10:42 vortioxetine AdvReac Unknown Vomiting Verified 01/09/23 10:42 Exam Narrative: no acute distress normal breathing alert oriented x3 small area of exposed mesh right sulcus Assessment and Plan Assessment and plan (1) Exposure of vaginal mesh through vaginal wall: Code(s): T83.721A - Exposure of implanted vaginal mesh into vagina, initial encounter Status: Acute (2) Intrinsic sphincter deficiency (ISD): Code(s): N36.42 - Intrinsic sphincter deficiency (ISD) Status: Acute Plan removal of exposed vaginal mesh. Concomitant bulking agent to lessen her risk of recurrent incontinence. Understands risks of bleeding, infection, incomplete efficacy, recurrent mesh exposure, need for ancillary procedures, urinary retention. Agrees to proceed.
[2024-04-21 10:41] VITALS: BMI 35.7
--- NOTE | 2024-04-21 10:42 | PC.NURSE ---
Report to the Outpatient Waiting Room, entrance under the green pavilion located off [facility], at time __9:00 am on date ___[id number]____. Planned Procedure Time: _11:00AM . Time changes happen often and if your time is changed the preop area will call you the afternoon before. - You and your visitor will be asked to self-screen and do not enter if you have any COVID symptoms. - A mask is optional within the hospital at this time. Patients may have clear liquids (water, carbonated beverages, clear teas, apple juice) until 3 hours prior to surgery with a maximum of 20 ounces. PLEASE STOP AT 8:00 AM - No food from midnight until time of surgery - Take the following medications with a SIP of water the morning of surgery: ____PAXIL, LAMICTAL, OLANZAPINE DO NOT STOP ANY OF YOUR OTHER PRESCRIPTION MEDICATIONS PRIOR TO SURGERY ?EXCEPT THE FOLLOWING: Patient to hold: Sumatiptan, Ubrelvy (patient states she rarely takes these and they are PRN), Adderrall . Medications to discontinue per physician ADVISED PATIENT TO CHECK WITH SURGEON IF SHE SHOULD HOLD HER MELOXICAM (PATIENT STATES SHE WILL STOP THE MELOXICAM TODAY BECAUSE HER SURGEON HAD HER DISCONTINUE IT PRIOR TO ANOTHER SURGERY). Please no make-up, nail uzbek, hairspray, perfume, deodorant, or body powder the day of surgery. No jewelry (including any body piercings) or valuables the day of surgery, leave them at home. Please take a shower or bath the night before, or the morning of, surgery with an antibacterial soap. Wear comfortable, loose fitting clothing. - Jewelry must be removed prior to entering the operating room. Rings and piercings that are not removed may be cut off. - The hospital will not accept responsibility for valuables. - Please leave all valuables, including medications, at home the day of surgery. If you are going home after surgery, a licensed hazardous materials tanker driver must drive you home. - NO public transportation without another adult if you receive anesthesia. - We recommend that an adult stay with you for 24 hours following discharge. - We also recommend that you do not drive, make important decision, drink alcoholic beverages, or take any drugs that were not prescribed by your health care provider for at least 24 hours after your discharge time. Follow any additional instructions given to you from your surgeon. If you or anyone in your household have experienced Covid symptoms in the past week, please notify your surgeon or the nurse liaison at the phone number below for possible testing. Telephone instructions given to _RENE (PATIENT) and asked if any additional questions and then verbalized understanding. Patient advised to call surgeon office or pre surgery nurse liaison [phone] if any additional questions.
--- NOTE | 2024-04-24 06:23 | WPDHPUPDATE1 ---
History and Physical Update Update Date/Time: 04/24/24 06:23 History and Physical has been reviewed, including an updated exam of the patient. There are NO changes in the patient's condition. Risks, benefits, and alternatives have been discussed and questions answered. Patient agrees to proceed with procedure.
--- NOTE | 2024-04-24 09:54 | P.PNAN_ITS ---
Anes - Initial Pre Proc Eval Procedure: Operation Date: 04/24/24 11:00 Proposed Procedures p Excision Exposed Vaginal Mesh, Cystoscopy, Injection Bulking Agent - Michael Bautista MD Date/Time: 04/24/24 09:54 Surgeon: Michael Bautista MD Pre Op Diagnosis: vaginal mesh exposure, ID Patient Data Age: 43 Gender: F Height: 1.6 m Weight: 91.6 kg Allergies Allergy/AdvReac Type Severity Reaction Status Date / Time Penicillins Allergy Unknown Unknown Verified 04/21/24 10:29 vortioxetine AdvReac Unknown Vomiting Verified 04/21/24 10:29 morphine AdvReac Agitated Verified 04/21/24 10:29 Home Medications Medication Instructions Recorded Confirmed Type benzonatate 200 mg capsule 200 mg PO Q8H PRN Cough 01/02/23 04/21/24 History dextroamphetamine-amphetamine 20 20 mg PO DAILY 01/02/23 04/21/24 History mg tablet (Adderall) ondansetron 8 mg disintegrating 8 mg PO Q8H PRN Nausea 01/02/23 04/21/24 History tablet paroxetine HCl 40 mg tablet (Paxil) 40 mg PO QAM 01/02/23 04/21/24 History sumatriptan succinate 100 mg tablet 100 mg PO QAM PRN Migraine Headache 01/02/23 04/21/24 History hydrocodone 5 mg-acetaminophen 325 1 - 2 tablet PO Q6H PRN pain #25 01/10/23 04/21/24 Rx mg tablet tabs lamotrigine 25 mg tablet (Lamictal) 50 mg PO DAILY 04/21/24 04/21/24 History meloxicam 15 mg tablet 15 mg PO DAILY 04/21/24 04/21/24 History olanzapine 5 mg tablet 5 mg PO DAILY 04/21/24 04/21/24 History ubrogepant 50 mg tablet (Ubrelvy) 50 mg PO DAILY PRN Migraine 04/21/24 04/21/24 History Headache Patient hx anesthesia problems: post op nausea/vomiting Family hx anesthesia problems: none Results Review: All pre-operative results and documents have been reviewed as part of the pre- operative evaluation. [facility] Past Medical History Medical History (Updated 04/19/24 @ 09:36 by Michael Bautista MD) Migraine headache Social History Social History Smoking packs per day: 1 Smoking cigarettes per day: 20.0 Years smoked: 30 Smoking pack-years: 30.00 Smoking status: Current every day smoker Tobacco type: cigarettes Second hand tobacco smoke exposure: Yes Alcohol intake: current Drinks per week: 3 Substance use: current Substance use type: marijuana Living arrangements: with family Spiritual care concerns: No Anes - Eval Final PreProcedure Day of Procedure 04/24/24 09:54 Patient weight: obese Heart: regular rate and rhythm Lungs: clear to auscultation Airway: Mallampati scale class II Neurological: alert and oriented Last oral intake: >/= 8 hours ASA classification: III Emergent: no Anesthetic plan: proceed Anesthesia type and monitoring: general LMA and standard monitoring Results Review: All pre-operative results and documents have been reviewed as part of the pre- operative evaluation. Informed Consent: The patient's anesthetic plan and its attendant risks and benefits were discussed with the patient/family/POA. Questions were solicited and answers provided to the satisfaction of the patient/family/POA.
[2024-04-24 10:05] VITALS: BP 122/72; PULSE 78; RESP 14; TEMP 36.7; O2SAT 98
[2024-04-24] MEDS: LACTATED RINGERS 1,000 ML 30 ML IV CONT (10:09)
[2024-04-24] MEDS: SCOPOLAMINE 1 MG PATCH 1 PATCH TRANSDERM (10:09)
[2024-04-24] MEDS: ceFAZolin 2 GM/D5W 50 ML 2 GM/50 ML BAG IVPB (11:07)
[2024-04-24] MEDS: BUPIVACAINE/EPINEPHRINE 0.5% 10 ML VIAL INFILTRATE (11:07)
--- NOTE | 2024-04-24 11:28 | W.PM.PROC2 ---
Procedure Note - Detailed Date of Procedure 04/24/24 Pre-op Diagnosis vaginal mesh exposure, Post-op Diagnosis Same Procedure Performed excision of exposed vaginal mesh Surgeon Michael Bautista MD Anesthesia MAC and Local Indications this wound has undergone urethral sling procedure. She has an area of mesh exposure at the right sulcus. This is bothersome during intercourse. She presents today for removal of exposed vaginal mesh. She understands risks of bleeding, infection, incomplete removal, recurrent mesh exposure. She understands the risks of recurrent stress incontinence. We attempted to arrange a concomitant bulking agent but that was unsuccessful at this time. She understands she may have resultant stress incontinence and may require a future procedure. She agrees to proceed Findings small area of mesh exposure right sulcus Description of Procedure she was correctly identified. Informed consent obtained. She from the operating room. She was given monitored anesthesia care. She was prepped and draped sterile fashion. She was given appropriate perioperative antibiotics. A time-out performed. I anesthetized the introitus of 4 spots. I placed a Sharon retractor and blue hooks for exposure. I placed O[place] catheter. I was able to identify the mesh exposure in the right sulcus. I was able to grasp it and excised the area of mesh exposure. I dissected laterally and medially to remove a nice segment. I sent this for pathologic analysis. I palpated the area there was no other mesh exposure throughout the entire sling. I closed the vaginal defect with a 2-0 Vicryl suture. There was excellent hemostasis. The Okeefe catheter was removed. The Sharon retractor was removed. She was awakened and transferred to PACU in stable condition
[2024-04-24 11:33] VITALS: BP 114/56; PULSE 84; RESP 16; O2SAT 93
[2024-04-24 11:45] VITALS: BP 110/67; PULSE 80; RESP 16; O2SAT 93
[2024-04-24 12:15] VITALS: BP 122/74; PULSE 76; RESP 16; O2SAT 96
[2024-04-24 12:45] VITALS: BP 136/80; PULSE 74; RESP 16; O2SAT 96
[2024-04-24 13:10] VITALS: BP 133/66; PULSE 69; RESP 16; O2SAT 97
--- NOTE | 2024-04-24 13:11 | SUR.PHASEII ---
Pt voided prior to discharge per MD Order
== END 2024-04-24 13:12 | disposition home or self-care (01) ==
PROVIDERS: PCP Family Medicine; Visit Provider Urology
PROC: 3E0K8GC Introduction of Other Therapeutic Substance into Genitourinary Tract, Via Natural or Artificial Opening Endoscopic (ICD-10-PCS; CPT 57295; principal; 2024-04-24 11:00)
DX: T83.721A Exposure of implanted vaginal mesh into vagina, initial encounter (principal); N36.42 Intrinsic sphincter deficiency (ISD); Y83.8 Other surgical procedures as the cause of abnormal reaction of the patient, or of later complication, without mention of misadventure at the time of the procedure; F17.210 Nicotine dependence, cigarettes, uncomplicated; F12.90 Cannabis use, unspecified, uncomplicated; E66.9 Obesity, unspecified; Z68.38 Body mass index [BMI] 38.0-38.9, adult
CPT/HCPCS: 57295; 88300; 93005; A9270; J0690; J1100; J2250; J2371; J2405; J2704; J3010; J7030; J7120

== ENCOUNTER 2024-08-14 10:08 | Emergency (ER) | payer BC, SELFPAY ==
[2024-08-14 10:19] VITALS: BP 151/95; PULSE 93; RESP 16; TEMP 37.2; O2SAT 99
[2024-08-14 10:36] VITALS: BP 151/95; PULSE 93; RESP 16; TEMP 37.2; O2SAT 99
--- NOTE | 2024-08-14 10:42 | ED.PSYCH ---
HPI - Psych General Chief Complaint: Psychiatric Symptoms Stated Complaint: not sure why here Time Seen by Provider: 08/14/24 10:42 Source: patient Mode of arrival: ambulatory Limitations: no limitations History of Present Illness HPI Narrative: 44 yo F presents stating she is feeling overwhelmed and overstimulated and has not been able to sleep. Pt has psychiatrist. Given olanzapine to help her sleep but states that it is not helping. Pt denies SI/HI. All systems reviewed and negative except as noted above. Related Data Home Medications Medication Instructions Recorded Confirmed dextroamphetamine-amphetamine 20 20 mg PO DAILY 01/02/23 08/14/24 mg tablet (Adderall) paroxetine HCl 40 mg tablet (Paxil) 40 mg PO QAM 01/02/23 08/14/24 sumatriptan succinate 100 mg tablet 100 mg PO QAM PRN Migraine Headache 01/02/23 08/14/24 lamotrigine 25 mg tablet (Lamictal) 50 mg PO DAILY 04/21/24 08/14/24 meloxicam 15 mg tablet 15 mg PO DAILY 04/21/24 08/14/24 olanzapine 5 mg tablet 5 mg PO DAILY 04/21/24 08/14/24 Allergies Allergy/AdvReac Type Severity Reaction Status Date / Time Penicillins Allergy Unknown Unknown Verified 08/14/24 10:33 vortioxetine AdvReac Unknown Vomiting Verified 08/14/24 10:33 morphine AdvReac Agitated Verified 08/14/24 10:33 Review of Systems Review of Systems: CONSTITUTIONAL: Denies fever, chills, or sweats. EYES: Denies visual changes, redness, or discharge. ENT: Denies rhinorrhea, congestion, sore throat, or otalgia. CARDIOVASCULAR: Denies chest pain, palpitations, or edema. RESPIRATORY: Denies cough or dyspnea. GASTROINTESTINAL: Denies abdominal pain, nausea, vomiting, or diarrhea. GENITOURINARY: Denies dysuria or hematuria. SKIN: Denies rash or itching. MUSCULOSKELETAL: Denies back pain, joint pain, or myalgia. NEUROLOGIC: Denies headache, numbness, or weakness. PSYCHIATRIC: Denies anxiety or depression. Patient tearful, reports difficulty sleeping. All other systems reviewed are negative, except as documented in HPI. [facility] Past Medical History Medical History (Updated 08/14/24 @ 10:59 by Mckayla Fuller NP) Migraine headache Social History Social History Smoking packs per day: 1 Smoking cigarettes per day: 20.0 Years smoked: 30 Smoking pack-years: 30.00 Smoking status: Current every day smoker Tobacco type: cigarettes Second hand tobacco smoke exposure: Yes Alcohol intake: current Drinks per week: 3 Substance use: current Substance use type: marijuana Living arrangements: with family Spiritual care concerns: No Comments At time of signature, agree with nursing past medical, surgical, social and family history. There is no relevant family history pertinent to the presenting complaint. Exam Narrative: GENERAL: This is a well-nourished, well-developed patient, in no apparent distress. HEAD: normocephalic, atraumatic. EYES: PERRL. Sclera clear/white. Vision is grossly intact. EARS: External ears normal NOSE: External nose normal NECK: Neck supple, non-tender without lymphadenopathy, masses or thyromegaly. CARDIOVASCULAR: Regular rate and rhythm without murmurs, gallops, or rubs. RESPIRATORY: Clear to auscultation. Breath sounds equal bilaterally. No wheezes, rales, or rhonchi. SKIN: warm, Dry, intact with no suspicious lesions or rash, good texture and turgor. NEURO: awake, alert, and oriented to person, place and time. There were no obvious focal neurologic abnormalities. EXTREMITIES: No joint tenderness, effusion, or edema noted. Course Course Level of Care: Express Care Visit Vital Signs Vital signs: Vital Signs Temperature 37.2 C 08/14/24 10:19 Pulse Rate 93 08/14/24 10:19 Respiratory Rate 16 08/14/24 10:19 Blood Pressure 151/95 H 08/14/24 10:19 Pulse Oximetry 99 08/14/24 10:19 Oxygen Delivery Room Air 08/14/24 10:19 Temperature 37.2 C 08/14/24 10:36 Pulse Rate 93 08/14/24 10:36 Respiratory Rate 16 08/14/24 10:36 Blood Pressure 151/95 H 08/14/24 10:36 Pulse Oximetry 99 08/14/24 10:36 Oxygen Delivery Room Air 08/14/24 10:36 reviewed MDM - Psych MDM Narrative Medical decision making narrative: pt denies SI/HI. states i am not delusional, i just can't sleep . explained to pt that i cannot prescribe medications from the [facility] to help her sleep. She states she figured that but the crisis line told her to come here . pt does not want to be transferred to the ER. in the past has tried several medications to help her sleep and they didn't help anyway . plans to go to her Dads and try to get some rest. Has appt aug 19 at [facility] [place]. Patient is aware of diagnosis, understands and agrees to treatment plan. Anticipatory guidance given. Patient agrees to follow-up as directed and is aware of reasons to seek care at the emergency department. Portions of this record may have been created with voice recognition software Discharge Plan Discharge Clinical Impression: Mental health problem, Difficulty sleeping Patient Disposition: Home, Self-Care Condition: Stable Instructions: General Patient Instructions Additional Instructions: I am not able to prescribe you medications to help you sleep. You will have to go to the ER or speak with your psychiatrist if you feel your current medications are not helping. If you are feeling suicidal go to the ER. Prescriptions: No Action sumatriptan succinate 100 mg Tablet 100 mg PO QAM PRN (Reason: Migraine Headache) dextroamphetamine-amphetamine [Adderall] 20 mg Tablet 20 mg PO DAILY paroxetine HCl [Paxil] 40 mg Tablet 40 mg PO QAM lamotrigine [Lamictal] 25 mg Tablet 50 mg PO DAILY meloxicam 15 mg Tablet 15 mg PO DAILY olanzapine 5 mg Tablet 5 mg PO DAILY Rx Instructions: states she took 2 yesterday am and 3 last night trying to make herself sleep Follow-up/Referrals: Jakob,MD David [Primary Care Provider] - Time of Disposition: 10:59
== END 2024-08-14 11:05 | disposition home or self-care (01) ==
PROVIDERS: Emergency Provider Nurse Practitioner Family; PCP Family Medicine
DX: F99 Mental disorder, not otherwise specified (principal); G47.00 Insomnia, unspecified; F17.210 Nicotine dependence, cigarettes, uncomplicated
CPT/HCPCS: 99211; G0463

== ENCOUNTER 2024-11-20 15:41 | Outpatient (CLI) | payer BC, SELFPAY ==
--- NOTE | ~2024-11-20 | XR_ITS ---
EXAMINATION: XR hand LT min 3V, XR hand RT min 3V, XR wrist RT min 3V, XR wrist LT min 3V DATE: 11/20/2024 16:02 INDICATION: Bilateral hand and wrist pain TECHNIQUE: 1. Posteroanterior, ulnar deviation, oblique, and lateral views of the left wrist were obtained. 2. Dorsal palmar, oblique and lateral views of the left hand were obtained. 3. Posteroanterior, ulnar deviation, oblique, and lateral views of the right wrist were obtained. 4. Dorsal palmar, oblique and lateral views of the right hand were obtained. COMPARISON: None. FINDINGS: Left hand and wrist: Alignment of the left hand and wrist is normal. No fracture identified. Mild polyarticular osteoarth ritis at the first carpometacarpal, first metacarpophalangeal and multiple interphalangeal joints wit h distal predominance. No erosions to suggest an inflammatory arthritis. No focal soft tissue swellin g. Right hand and wrist: Alignment of the right hand and wrist is normal. No fracture identified. Symmetric mild polyarticula r osteoarthritis at the first carpometacarpal, first metacarpophalangeal and multiple interphalangeal joints with distal predominance. No erosions to suggest an inflammatory arthritis. Tiny corticated o ssicle near the tip of the ulnar styloid process without evident donor site which could be either deg enerative loose body or heterotopic opacification related to chronic soft tissue injury. No focal sof t tissue swelling. IMPRESSION: 1. Mild polyarticular osteoarthritis at the bilateral hands. Reviewed, dictated and finalized at location A. ATION DIAGNOSTICIAN IMPRESSION: 1. Mild polyarticular osteoarthritis at the bilateral hands. IMPRESSION: 1. Mild polyarticular osteoarthritis at the bilateral hands. IMPRESSION: 1. Mild polyarticular osteoarthritis at the bilateral hands.
--- OUTSIDE RECORDS SUMMARY | 2024-11-20 15:46 | XMS_ITS | Clinical Summary ---
Author Organization [facility] [address] Address [address] [place] [address] Care Team Providers Care Technology Trainer Name Role Phone Roseanna Bernardo NOVELTIES SALES REPRESENTATIVE Primary Care Provider + Allergies Active Allergy Reactions Criticality Noted Date Comments Amoxicillin Rash Medium 11/05/2019 Morphine Other (See comments) Low 09/24/2023 Doesn't seem to work for the patient and irritate the stomach Penicillins Unknown 12/26/2017 Vortioxetine Nausea & Vomiting Low 11/05/2019 Medications ALPRAZolam (XANAX) 0.5 mg tablet Take 1 tablet (0.5 mg total) by mouth 3 (three) times a day as needed for anxiety Active ARIPiprazole (ABILIFY) 10 mg tablet Take 1 tablet (10 mg total) by mouth daily Active SUMAtriptan (IMITREX) 50 mg tablet [address] (VOLTAREN) 75 mg EC tablet diclofenac sodium 75 mg tablet,delayed release Active DULERA 100-5 mcg/actuation inhaler INHALE 2 PUFFS INTO LUNGS BID 0 Active sertraline (ZOLOFT) 100 mg tablet Take 100 mg by mouth daily Active PARoxetine (PAXIL) 10 mg tablet Take 1 tablet (10 mg total) by mouth every morning 3 Active PARoxetine (PAXIL) 40 mg tablet Take 1 tablet (40 mg total) by mouth every morning 3 Active Active Problems Problem Noted Date Diagnosed Date Acute deep vein thrombosis (DVT) of popliteal ve in 02/16/2022 Thrombocytosis 02/16/2022 Status post placement of implantable loop record er 05/01/2019 Overview (05/01/2019): [employer] Reveal Implanted Loop Recorder. Dx; Syncope. DOI 05/01/2019-[facility]. Colon remote monitoring. Vasovagal syncope 12/26/2017 Medical History Medical History Date Comments Dizziness Black-out (not amnesia) Overweight Anxiety Depression Pre-eclampsia 2002 Family History Medical History Relation Name Comments Cancer Maternal Grandfather Heart disease Maternal Grandfather Hyperlipidemia Maternal Grandmother Hypertension Maternal Grandmother Hyperlipidemia Mother Hypertension Mother Relation Name Status Comments Brother 1 Carrillo Alive Brother 2 TJ Alive Father Alive Maternal Grandfather Alive Maternal Grandmother Alive Mother Alive Social History Tobacco Use Types Packs/Day Years Used Date Smoking Tobacco: Every Day Cigarettes Smokeless Tobacco: Never Tobacco Cessation:Ready to Q uit: Not Asked; Counseling Given: Not Answered Alcohol Use Standard Drinks/Week Comments Yes 0 (1 standard drink = 0.6 oz pur e alcohol) Personal Safety Answer Date Recorded Have you ever been in or are you currently in a harmful physical or emotional relationship or is someone making you feel afraid or unsafe? Denies 08/19/2024 Comments No Sex and Gender Information Value Date Recorded Sex Assigned at Not on file Legal Sex Female 9:03 AM SEXUAL ASSAULT COUNSELOR Gender Identity Not on file Sexual Orientation Not on file Obstetrics History Last Filed Vital Signs Vital Sign Reading Time Taken Comments Blood Pressure 140/90 08/19/2024 6:09 PM SEXUAL ASSAULT COUNSELOR Pulse 85 08/19/2024 6:09 PM SEXUAL ASSAULT COUNSELOR Temperature 36.6 C (97.8 F) 08/19/2024 12:24 PM SEXUAL ASSAULT COUNSELOR Respiratory Rate 18 08/19/2024 6:09 PM SEXUAL ASSAULT COUNSELOR Oxygen Saturation 98% 08/19/2024 6:09 PM SEXUAL ASSAULT COUNSELOR Inhaled Oxygen Concentration - - Weight 96.6 kg (213 lb) 08/19/2024 12:24 PM SEXUAL ASSAULT COUNSELOR Height 160 cm (5' 3 ) 08/19/2024 12:24 PM SEXUAL ASSAULT COUNSELOR Body Mass Index 37.73 08/19/2024 12:24 PM SEXUAL ASSAULT COUNSELOR Plan of Treatment Health Maintenance Due Date Last Done Comments Breast Cancer Screening-Mammogram 1981 Depression Screening 1981 Hepatitis C Screening 1981 Varicella Vaccines (1 of 2 - 13+ 2-dose series) 1994 Hepatitis B Screening 1999 Regular Well Visit/Exam 18-64 1999 Pneumococcal vaccine <65 (1 of 2 - PCV) 2000 DTaP/Tdap/Td Vaccine (1 - Tdap) 11/20/2000 11/19/2000 Influenza Vaccine (#1) 2024 , 07/15/2017, 07/11/2017 HPV Vaccines Aged Out No longer eligi ble based on patient's age to complete this topic Insurance [employer] ANTH ACCESS CHOICE Care Teams Technology Trainer Relationship Specialty Start Date End Date Roseanna Bernardo NP [address] [address] PCP - General Nurse Practitioner 04/23/19
--- OUTSIDE RECORDS SUMMARY | 2024-11-20 15:46 | XMS_ITS | Data Portability ---
Author Organization [facility] [employer], Main Office Address [address] [place] [address] Care Team Providers Care Account Contact Associate Name Role Phone DAVID ROBERT Primary Care Provider [phone] Assessment No assessment recorded. Plan of Treatment Reminders Order Date Submit Date Provider Last Modified By Organization Details Last Modified Time Details Appointments Follow Up 15 2024 03:45P M David Robert MD Not available Not available Not available Lab None recorded. Referral gastroent erologist referral - Please call patient to schedule an appointme nt. Thank you. 2024 025 GRACE Mendez MD, [address] [place], [address], 11/10/2024 12:40:31 orthopedi c surgeon referral - Please call patient to schedule an appointme nt. Thank you. 2023 024 [email or web address] [facility], [address], [place], [address], 02/06/2024 08:46:20 Procedures None recorded. Surgeries None recorded. Imaging XR, hand, 3 or more view [address], [facility] [address] [place] [address], [address], 11/10/2024 12:35:19 XR, wrist, 3 or more view [address], [address], [place], [address], 11/17/2024 08:14:07 XR, hand, 3 or more view 2023 024 [email or web address] 56 Not available 01/27/2024 08:55:34 XR, wrist, 3 or more view 2023 024 [email or web address] 56 Not available 01/16/2024 08:51:04 XR, knee, 3 view 2023 024 [email or web address] 56 Not available 01/27/2024 08:55:34 Medication Orders ketorolac 30 mg/mL (1 mL) injection solution 2024 025 [email or web address] Not available 11/10/2024 17:47:45 tramadol 50 mg tablet 2024 025 [facility] [address] [place], [address], 11/10/2024 12:14:15 Ubrelvy 100 mg tablet 2023 024 [email or web address] [facility] [address] [place], [address], 01/09/2024 12:50:17 sumatript an 100 mg tablet 2023 024 [facility] [address] [place], [address], 01/09/2024 12:38:30 meloxicam 7.5 mg tablet 2023 024 [facility] [address] [place], [address], 01/09/2024 12:38:30 Patient TargetsNo targets recorded. Patient InstructionsNo instructions recorded. Reason for Referral Orthopedic Surgeon Referral for Pain of bilateral knee joints Please call patient to schedule an appointment. Thank you. Referring Physician: David Robert, Family Medicine, Encounter Date: 01/09/2024 Hull Sorter Referral for Blood-tinged feces Please call patient to schedule an appointment. Thank you. Referring Physician: David Robert, Family Medicine, Encounter Date: 11/10/2024 Results Created Date Observation Date Name Description Value Unit Range Abnormal Flag Note LastModifiedBy Organization Detail LastModifiedTime 10/24/19 22 10/24/2021 US, ondina jean s, lower extre mity No observ ation record ed. [id number] [facility] [address] [place], [address], 11/28/2022 08:16:17 10/24/19 22 10/24/2021 US, ondina jean s, extre mity, compl ete No observ ation record ed. [id number] Not Available 11/28/2022 08:16:17 10/30/19 22 10/27/2021 US, ondina jean s, extre mity, unila teral No observ ation record ed. [id number] [facility] [address] [place], [address], 11/28/2022 08:16:17 11/15/19 23 11/15/2022 elect romyo gram + nerve condu ction study No observ ation record ed. [email or web address] [address], [address], 01/09/2024 12:26:56 Result Notes None recorded. Problems Name Problem SNOMED Code Status Onset Date Resolution Date Notes Provider Name and Address Organization Details Recorded Time Paronychi a of toe of left foot 13120891503 550790 Active 2018 Not Available [facility] 3 08:10:56 Paronychi a of toe of right foot 46089373930 406634 Active 2018 Not Available [facility] 3 08:10:56 Bilateral wrist pain 57993804315 511458 Active 2021 Not Available [facility] 3 08:10:56 Chronic obstructi ve pulmonary disease 32647718 Active 2020 Not Available [facility] 3 08:10:56 Fracture of ankle 97555451 Active 2020 Not Available [facility] 3 08:10:56 Pain in throat 759441847 Completed Not Available [facility] 3 08:10:56 Disorder of nail 37790753 Completed Not Available [facility] 3 08:10:56 Obsessive -compulsi ve disorder 208620798 Active Not Available [facility] 3 08:10:56 Anxiety disorder 466206365 Active 2018 Not Available [facility] 3 08:10:56 Feeling stressed 819566978 Completed Not Available [facility] 3 08:10:57 Fluid level behind tympanic membrane Completed Not Available [facility] 3 08:10:57 Headache 41503718 Active 2018 Not Available [facility] 3 08:10:57 Abnormal weight loss 538333401 Completed Not Available [facility] 3 08:10:57 Injury of nail 343293193 Completed Not Available [facility] 3 08:10:57 Knee pain Active Not Available [facility] 3 08:10:57 Pain in right knee Active 2017 Not Available [facility] 3 08:10:57 Depressiv e disorder 67808908 Active Not Available [facility] 3 08:10:57 Sinusitis 37866006 Completed Not Available [facility] 3 08:10:57 Arthritis 7664314 Active 2018 Not Available [facility] 3 08:10:57 Migraine 34334116 Active Not Available [facility] 3 08:10:57 Paronychi a of toe 208241609 Completed Not Available [facility] 3 08:10:57 Deep venous thrombosi s of lower extremity 542134181 Active 2021 Not Available [facility] 3 08:10:57 Dizziness 853261925 Active 2018 Not Available [facility] 3 08:10:58 Obesity 412377591 Active 2018 Not Available [facility] 3 08:10:58 Epidermoi d cyst of skin 952189187 Completed Not Available [facility] 3 08:10:58 Aphthous ulcer of mouth 032507751 Completed Not Available [facility] 3 08:10:58 Posttraum atic stress disorder 26662616 Active Not Available [facility] 3 08:10:58 Anxiety 60263463 Active Not Available [facility] 3 08:10:58 Cough 10160876 Active 2020 Not Available [facility] 3 08:10:58 Pain of breast 92048658 Completed Not Available [facility] 3 08:10:58 Upper respirato ry infection 47815226 Completed Not Available [facility] 3 08:10:58 Hyperlipi demia 03602645 Active 2020 Not Available [facility] 3 08:10:59 Unable to concentra te 41188858 Active Not Available [facility] 3 08:10:59 Thrombocy tosis 4241396 Active 2021 Not Available [facility] 3 08:10:59 Candidias is of vagina 31945579 Completed Not Available [facility] 3 08:10:59 Posterior rhinorrhe a 41936509 Completed Not Available [facility] 3 08:10:59 Fatigue 24810879 Completed Not Available [facility] 3 08:10:59 Pain in limb 84715897 Active Not Available [facility] 3 08:10:59 Osteoarth ritis 163439969 Active 2022 Roseanna Bernardo NP [address], [place], [address] , [facility] [employer] [facility] 3 14:42:46 Pain of bilateral knee joints 28371636273 4104 Active 2023 David Robert MD [address], [place], [address] , [place] [facility] 4 12:30:50 Pain of bilateral hands 15544126530 519874 Active 2023 David Robert MD [address] [facility] [address], [place], [address] , [facility] [employer] [facility] [employer] 4 12:32:19 Migraine without aura 03952622 Active 2023 David Robert MD [address] [facility], [address] [address], [place], [address] , [facility] [employer] 4 12:34:23 Blood-tin ged feces 19236762475 4102 Active 2024 David Robert MD [address] [facility], [address] [address], [place], [address] , [facility] [employer] [facility] [employer] 5 12:12:00 Problem Notes None recorded. Procedures Surgical History Date Name Laterality Status Provider Name and Address Organization Details Recorded Time 1 Ankle Surgery completed Not Available [facility] 11/28/2022 08:07:27 Imaging Results Imaging Date Name Status LastModified by Organization Details LastModified Time 11/15/2022 electromyogram + nerve conduction study completed [email or web address], [address], 01/09/2024 12:26:56 10/24/2021 US, duplex, venous, lower extremity completed [id number] [facility] [address] [place], [address], 11/28/2022 08:16:17 10/24/2021 US, duplex, venous, extremity, complete completed [id number] Information not available 11/28/2022 08:16:17 10/27/2021 US, duplex, venous, extremity, unilateral completed [id number] [facility] [address] [place], [address], 11/28/2022 08:16:17 Procedure Notes None recorded. Medical Equipment None Reported. Allergies Allergen ID Allergen Name Allergen Category Reaction Reaction Severity Criticality Documentation Date Start Date Code Code System Note Provider Name and Address Organization Details Recorded Time Product containin g penicilli n (product) medicatio n Not available Not available Not available 11/28/2022 66638 8001 SNOMED Not Available [facility] 3 08:16:03 63945 Nasonex medicatio n Not available Not available Not available 11/28/2022 09469 6 RxNorm Not Available [facility] 3 08:16:03 55758 amoxicill in medicatio n rash Not available Not available 11/28/2022 723 RxNorm Not Available [facility] 3 08:16:04 18202 vortioxet ine hydrobrom ritchie medicatio n vomiting mild low 11/10/20242018 50376 34 RxNorm Anne Marie Vera RN null, [place] [facility] [employer] 5 12:03:25 Medications Name Sig Start Date Stop Date Status Note LastModified by Organization Details LastModified Time buspirone 5 mg tablet TK 1 T PO BID IN THE MORNING AND AT NOON 07/30 completed Not Available Not Available Not Available prednison e 10 mg tablet active Not Available Not Available Not Available doxycycli ne hyclate 100 mg capsule Take 1 capsule twice a day by oral route for 10 days. 11/29 completed Not Available Not Available Not Available paroxetin e 10 mg tablet TAKE 1/2 TABLET BY MOUTH EVERY DAY 01/08 completed Not Available Not Available Not Available Ceftin 500 mg tablet take one tablet twice daily [id number] 12/10 completed Not Available Not Available Not Available clindamyc in HCl 300 mg capsule TAKE ONE CAPSULE BY MOUTH FOUR TIMES DAILY UNTIL ALL TAKEN 07/31 completed Not Available Not Available Not Available azithromy christianne 250 mg tablet ZPK active Not Available Not Available No t Available ibuprofen 800 mg tablet TAKE 1 TABLET BY MOUTH 2 HOURS PRIOR TO PROCEDUR E 07/31 completed Not Available Not Available Not Available amitripty line 75 mg tablet 12/10 completed Not Available Not Available Not Available fluconazo le 150 mg tablet TAKE 1 TABLET BY MOUTH EVERY DAY FOR 1 DAY 01/08 completed Not Available Not Available Not Available benzonata te 200 mg capsule TAKE 1 CAPSULE BY MOUTH EVERY 8 HOURS NEEDED FOR COUGH 01/08 completed Not Available Not Available Not Available sumatript an 100 mg tablet TAKE 1 TABLET BY MOUTH NEEDED DIRECTED active Not Available Not Available No t Available hydrocodo ne 5 mg-acetam inophen 325 mg tablet TAKE 1 TO 2 TABLETS BY MOUTH EVERY 4 HOURS NEEDED FOR PAIN OR ACUTE PAIN 01/08 completed Not Available Not Available Not Available Celestone Soluspan 6 mg/mL suspensio n for injection active [facility]# 42061-22 - Not Available Not Available Not Available ondansetr on HCl 8 mg tablet TAKE 1 TABLET BY MOUTH 2 HOURS PRIOR TO PROCEDUR E 01/08 completed Not Available Not Available Not Available meloxicam 15 mg tablet TAKE 1 TABLET BY MOUTH EVERY DAY NEEDED WITH FOOD active Not Available Not Available No t Available dextroamp hetamine- amphetami ne 10 mg tablet TAKE TWO (2) TABLETS BY MOUTH EVERY MORNING AND ONE (1) TABLET AT NOON NINETY active Not Available Not Available No t Available rizatript an 10 mg tablet Take 1 tablet by oral route for 30 days. active 1 tablet on onset and a 1 more 2 hours later but no more than 2 in a 24 hr span ((zomig works better for her)) Not Available Not Available Not Available sertralin e 100 mg tablet TAKE 1 TABLET BY MOUTH EVERY DAY IN THE MORNING 08/17 completed Not Available Not Available Not Available quetiapin e 200 mg tablet TAKE ONE (1) TABLET BY MOUTH EVERY 3 DAYS active Not Available Not Available No t Available olanzapin e 5 mg tablet TAKE 1 TABLET BY MOUTH EVERY DAY AT BEDTIME NEEDED active Not Available Not Available No t Available sumatript an 50 mg tablet TAKE 1 TABLET BY MOUTH AT ONSET OF HEADACHE , MAY REPEAT 2 HOURS LATER, NO MORE THAN 2 TABLETS IN 24 HOUR PERIOD 01/08 completed Not Available Not Available Not Available promethaz ine 6.25 mg-codein e 10 mg/5 mL syrup Take 5 mL every 6 hours by oral route as needed. active Not Available Not Available No t Available acetamino phen 300 mg-codein e 30 mg tablet TAKE 1 TABLET BY MOUTH EVERY 6 HOURS NEEDED FOR PAIN 07/31 completed Not Available Not Available Not Available divalproe x 500 mg tablet,de layed release active Not Available Not Available Not Available Tamiflu 75 mg capsule Take 1 capsule twice a day by oral route for 5 days. 10/19 completed Not Available Not Available Not Available sulfameth oxazole 800 mg-trimet hoprim 160 mg tablet Take 1 tablet every 12 hours by oral route for 7 days. 12/10 completed Not Available Not Available Not Available hydrocodo ne 10 mg-acetam inophen 325 mg tablet TAKE 1 TABLET BY MOUTH 2 HOURS PRIOR TO PROCEDUR E 07/31 completed Not Available Not Available Not Available aspirin 81 mg tablet,de layed release TAKE 1 TABLET BY MOUTH TWICE DAILY active Not Available Not Available No t Available tramadol 50 mg tablet TAKE 1 TABLET BY MOUTH EVERY 8 HOURS NEEDED FOR PAIN 2024 active Not Available Not Available Not Avai lable quetiapin e 100 mg tablet TAKE 1 TABLET BY MOUTH EVERY DAY AT BEDTIME FOR 7 DAYS 08/17 completed Not Available Not Available Not Available zolmitrip tafoya 5 mg tablet 03/18 completed Not Available Not Available Not Available ketorolac 30 mg/mL (1 mL) injection solution Inject 1 mL as needed by intramus cular route for 1 day. 2024 active pt ken well Not Available Not Available Not Available lamotrigi ne 25 mg tablet TAKE 2 TABLETS BY MOUTH EVERY DAY active Not Available Not Available No t Available meloxicam 7.5 mg tablet TAKE 1 TABLET BY MOUTH EVERY 12 HOURS NEEDED FOR 30 DAYS 2023 active Not Available Not Available Not Avai lable oxycodone -acetamin ophen 5 mg-325 mg tablet TAKE 1 TABLET BY MOUTH EVERY 4 HOURS NEEDED FOR PAIN 07/31 completed Not Available Not Available Not Available alprazola m 0.5 mg tablet TAKE 1 TABLET BY MOUTH 2 HOURS BEFORE THE PROCEDUR E 01/08 completed Not Available Not Available Not Available alprazola m 0.25 mg tablet TK 1 T PO QID 03/18 completed Not Available Not Available Not Available triamcino lone acetonide 0.1 % dental paste Take 1 applicat ion 4 times a day by dental route as directed for 15 days. 12/10 completed Not Available Not Available Not Available dextroamp hetamine- amphetami ne ER 20 mg 24hr capsule,e xtend release TAKE 1 CAPSULE BY MOUTH EVERY MORNING 01/08 completed Not Available Not Available Not Available ropinirol e 0.25 mg tablet 12/10 completed Not Available Not Available Not Available ciproflox acin 0.3 % eye drops 11/29 completed Not Available Not Available Not Available lithium carbonate 300 mg capsule Take 1 capsule twice a day by oral route for 30 days. active Internal note: DR. KM [place] al note: PT STATES MADE HER LIKE A ZOMBIE Not Available Not Available Not Available cephalexi n 500 mg capsule 07/31 completed Not Available Not Available Not Available paroxetin e 30 mg tablet TAKE 1 TABLET BY MOUTH DAILY 07/31 completed Not Available Not Available Not Available paroxetin e 20 mg tablet TAKE 1 TABLET BY MOUTH DAILY 07/31 completed Not Available Not Available Not Available cyanocoba mamie (vit B-12) 1,000 mcg/mL injection solution Inject 1 mL every month by intramus cular route. active [facility]# [id number] Not Available Not Available Not Available buspirone 10 mg tablet bid active Not Available Not Available Not Available dextroamp hetamine- amphetami ne 20 mg tablet TAKE ONE (1) TABLET BY MOUTH EVERY MORNING AND ONE (1) TABLET EVERY AFTERNOO N. #SIXTY active Not Available Not Available No t Available Adderall XR 10 mg capsule,e xtended release TK 1 C PO QD IN THE MORNING 08/17 completed Not Available Not Available Not Available diclofena c sodium 75 mg tablet,de layed release TAKE 1 TABLET BY MOUTH TWICE DAILY WITH FOOD active Not Available Not Available No t Available mupirocin 2 % topical ointment active Not Available Not Available Not Available diazepam 10 mg tablet TK 1 T PO THE NIGHT BEFORE AND 1 HR PRIOR TO APPT active Not Available Not Available No t Available levofloxa christianne 500 mg tablet TK 1 T PO Q 24 H FOR 7 DAYS 10/09 completed Not Available Not Available Not Available methylpre dnisolone 4 mg tablets in a dose pack TK UTD 07/30 completed Not Available Not Available Not Available albuterol sulfate HFA 90 mcg/actua tion aerosol inhaler Inhale 2 puffs every 4 hours by inhalati on route. active Not Available Not Available No t Available paroxetin e 40 mg tablet TAKE 1 TABLET BY MOUTH EVERY DAY active Not Available Not Available No t Available ondansetr on 4 mg disintegr ating tablet 06/26 completed Not Available Not Available Not Available sertralin e 50 mg tablet TAKE 1 TABLET BY MOUTH EVERY DAY IN THE MORNING 08/17 completed Not Available Not Available Not Available naproxen 500 mg tablet TAKE 1 TABLET BY MOUTH TWICE DAILY NEEDED. ALTERNAT E WITH TYLENOL AND OXYCODON E. 07/31 completed Not Available Not Available Not Available oxycodone 5 mg tablet 07/31 completed Not Available Not Available Not Available hydroxyzi ne pamoate 25 mg capsule TAKE 1 CAPSULE BY MOUTH TWICE DAILY DIRECTED 08/17 completed Not Available Not Available Not Available aripipraz ole 10 mg tablet TAKE 1 TABLET BY MOUTH AT BEDTIME 07/31 completed Not Available Not Available Not Available aripipraz ole 20 mg tablet TAKE 1 TABLET BY MOUTH EVERY DAY active Not Available Not Available No t Available Abilify 5 mg tablet Take 1 tablet every day by oral route. 11/10 completed Not Available Not Available Not Available TriNessa (28) 0.18 mg(7)/0.2 15 mg(7)/0.2 5 mg(7)-35 mcg tablet active Not Available Not Available Not Available Mucinex DM 30 mg-600 mg tablet,ex tended release 12 hr Take 1 tablet every 12 hours by oral route as directed for 15 days. active Not Available Not Available No t Available Mirena 2014 active Not Available Not Available Not Avai lable Abilify 2 mg tablet Take 1 tablet every day by oral route for 30 days. active Not Available Not Available No t Available Symbicort 160 mcg-4.5 mcg/actua tion HFA aerosol inhaler Inhale 2 puffs twice a day by inhalati on route. 01/08 completed Not Available Not Available Not Available Symbicort 80 mcg-4.5 mcg/actua tion HFA aerosol inhaler Inhale 2 puffs twice a day by inhalati on route. 09/10 completed Not Available Not Available Not Available Dulera 100 mcg-5 mcg/actua tion HFA aerosol inhaler INHALE 2 PUFFS INTO THE LUNGS TWICE DAILY 08/17 completed Not Available Not Available Not Available Eliquis 5 mg tablet 07/31 completed Not Available Not Available Not Available Breo Ellipta 100 mcg-25 mcg/dose powder for inhalatio n Inhale 1 puff every day by inhalati on route. 09/10 completed Not Available Not Available Not Available Virtussin AC 10 mg-100 mg/5 mL oral liquid TAKE 10ML BY MOUTH EVERY 4 TO 6 HOURS NEEDED 08/17 completed Not Available Not Available Not Available Breo Ellipta 200 mcg-25 mcg/dose powder for inhalatio n 1 puff inh daily 11/29 completed Not Available Not Available Not Available Trintelli x 10 mg tablet 12/20 completed Not Available Not Available Not Available Trintelli x 20 mg tablet 01/29 completed Not Available Not Available Not Available Wixela Inhub 250 mcg-50 mcg/dose powder for inhalatio n INHALE 1 PUFF BY MOUTH TWICE DAILY 11/29 completed Not Available Not Available Not Available Ubrelvy 100 mg tablet Take by oral route for 30 days. active Not Available Not Available No t Available ID NOW COVID-19 Test Kit TEST DIRECTED TODAY 07/31 completed Not Available Not Available Not Available Breztri Aerospher e 160 mcg-9mcg- 4.8mcg/ac tuation HFA aerosol inhaler INHALE 2 PUFFS BY MOUTH TWICE DAILY. RINSE MOUTH AFTER USE active Not Available Not Available No t Available Vitals Date Recorded Body mass index (BMI) Body height Oxygen saturation Oxygen saturation in Arterial blood by Pulse oximetry Heart rate Body temperature Body weight Systolic blood pressure Diastolic blood pressure Provider Name and Address Organization Details Last Updated DateTime 2 34.2 kg/m2 160.02 cm 97 % 97 % 97 /min 96.7 [degF] 78861.3 8 g 144 mm[Hg] 84 mm[Hg] Not Available [facility] 3 08:07:59 Date Recorded Body mass index (BMI) Body height Oxygen saturation Oxygen saturation in Arterial blood by Pulse oximetry Heart rate Body temperature Body weight Systolic blood pressure Diastolic blood pressure Provider Name and Address Organization Details Last Updated DateTime 2 36 kg/m2 160.02 cm 96 % 96 % 106 /min 96.6 [degF] 20147.2 5 g 130 mm[Hg] 68 mm[Hg] Not Available [facility] 3 08:07:59 Date Recorded Body height Body mass index (BMI) Body weight Body temperature Heart rate Respiratory rate Oxygen saturation Oxygen saturation in Arterial blood by Pulse oximetry Provider Name and Address Organization Details Last Updated DateTime 4 170.18 cm 33.8 kg/m2 33210.3 g 98.1 [degF] 80 /min 20 /min 97 % 97 % Satinder Mcfadden ND [employer] 4 12:22:38 Date Recorded Systolic blood pressure Diastolic blood pressure Provider Name and Address Organization Details Last Updated DateTime 01/09/2024 140 mm[Hg] 84 mm[Hg] David Robert MD [address], [place], [address] [employer] 01/09/2024 12:27:07 Date Recorded Body height Body mass index (BMI) Body weight Body temperature Heart rate Systolic blood pressure Diastolic blood pressure Provider Name and Address Organization Details Last Updated DateTime 5 160.02 cm 35.6 kg/m2 54156.4 7 g 97.5 [degF] 73 /min 132 mm[Hg] 82 mm[Hg] Anne Marie Vera RN ND [employer] [facility] [employer] 5 12:02:27 Date Recorded Oxygen saturation Oxygen saturation in Arterial blood by Pulse oximetry Provider Name and Address Organization Details Last Updated DateTime 11/10/2024 96 % 96 % David Robert MD [address], [place], [address], [employer] 11/10/2024 12:27:48 Social History Question Answer Notes LastModified by Organizat ion Details LastModified Time Tobacco Smoking Status Current Every Day Smoker Not Available [facility] 11/28/2022 08:07:03 Do You Have An Advance Directive? Yes [id number] Information not available 11/28/2022 What Is Your Level Of Alcohol Consumption? Occasional [id number] Information not available 11/28/2022 What Is Your Level Of Caffeine Consumption? Heavy [id number] Information not available 11/28/2022 In The 14 Days Before Symptom Onset, Have You Had Close Contact With A Laboratory-confi rmed COVID-19 While That Case Was Ill? No [id number] Information not available 11/28/2022 In The 14 Days Before Symptom Onset, Have You Had Close Contact With A Person Who Is Under Investigation For COVID-19 While That Person Was Ill? No [id number] Information not available 11/28/2022 What Type Of Diet Are You Following? REGULAR [id number] Information not available 11/28/2022 Which Illicit Or Recreational Drugs Have You Used? Marijuana [id number] Information not available 11/28/2022 What Is The Highest Grade Or Level Of School You Have Completed Or The Highest Degree You Have Received? 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 No MIGRATION.80691 53049 Information not available 11/28/2022 What Is The Fluoride Status Of Your Home? Unknown MIGRATION.48203 91719 Information not available 11/28/2022 Do You Use Insect Repellent Routinely? No MIGRATION.27765 46299 Information not available 11/28/2022 Where Do You Live? [facility] MIGRATION.16827 99679 Information not available 11/28/2022 Do You Have A Medical Power Of Pharm Tech? Yes MIGRATION.64507 38614 Information not available 11/28/2022 Do You Have Any Pets? Yes 1 Cat MIGRATION.46957 01356 Information not available 11/28/2022 What Is Your Relationship Status? MIGRATION.21408 08082 Information not available 11/28/2022 Do You Use Your Seat Belt Or Car Seat Routinely? Yes MIGRATION.48088 44004 Information not available 11/28/2022 Do You Have Smoke And Carbon Monoxide Detectors In Your Home? Yes MIGRATION.81499 42304 Information not available 11/28/2022 Are You Passively Exposed To Smoke? No MIGRATION.51455 62734 Information not available 11/28/2022 Are There Any Smokers In Your House? No MIGRATION.72407 96250 Information not available 11/28/2022 How Much Tobacco Do You Smoke? 1 PPD MIGRATION.59400 42875 Information not available 11/28/2022 Do You Participate In Social Media? Yes MIGRATION.83475 80521 Information not available 11/28/2022 Do You Feel Stressed (tense, Restless, Nervous, Or Anxious, Or Unable To Sleep At Night)? [id number] MIGRATION.12017 44428 Information not available 11/28/2022 Do You Use Any Illicit Or Recreational Drugs? Yes MIGRATION.72817 90628 Information not available 11/28/2022 Do You Use Sunscreen Routinely? No MIGRATION.62039 99456 Information not available 11/28/2022 Have You Recently Traveled Abroad? No MIGRATION.19903 62269 Information not available 11/28/2022 Do You Have Any Dietary Restrictions? No MIGRATION.34631 71602 Information not available 11/28/2022 Sex: Female Functional Status Question Answer Note LastModified by Organizat ion Details LastModified Time What is your exercise level? None [id number] Information not available 11/28/2022 Mental Status None recorded. Family History Relationship Description Onset Age of this Age Resolved Age Notes LastModified by Organization Details LastModified Time Paternal Grandfather Family history of malignant neoplasm [id number] Not available 11/28/2022 08:07:28 Notes:cancer - grandparent m aternal and paternal Medical History Condition Response BLINDNESS N RHEUMATIC FEVER N BLADDER PROBLEMS N KIDNEY STONES N MRSA N OTHER # 1 N POLIO N LUNG DISEASE/DISORDER N HISTORY OF DRUG ABUSE N RADIATION / CHEMOTHERAPY N COPD N Other # 2 N BLOOD DISEASES N SURGERY N EAR OR HEARING PROBLEMS N MUMPS N SHINGLES N DEPRESSION (INCLUDING POST ) Y FEMALE PROBLEMS / INFECTIONS N BOWEL PROBLEMS N STROKE/TIA N THYROID DISEASE N ULCERS N BENIGN PROSTATIC HYPERPLASIA N MEASLES N CERVICALGIA N HYPOTENSION N TB SKIN TEST N MYOCARDIAL INFARCTION N PARAPELGIA N OBESITY N GERD/NAUSEA N ANEURYSM N URINARY/BLADDER/KIDNEY PROBLEMS N CORONARY ARTERY DISEASE (CAD) N MENIERE'S DISEASE N ADDICTION CONCERNS N ENDOMETRIOSIS N USE OF BLOOD THINNERS N SKIN PROBLEMS N EMPHYSEMA N GASTROINTESTINAL DISORDER N MUSCLE,JOINT OR BONE PROBLEMS N GASTROINTESTINAL BLEEDING N BLOOD CLOTS N ASTHMA N CATARACTS N ERECTILE DYSFUNCTION N GI PROBLEMS N CHF N Low Testosterone N NEUROPATHY N INFERTILITY N AIDS/HIV N FRACTURES N CHEMOTHERAPY / RADIATION N VISION/EYE PROBLEMS N LIVER DISEASE N MALE HYPOGONADISM N HYPERTENSION N TOURETTE'S N ANXIETY DISORDER N BLOOD TRANSFUSION N ANEMIA/BLOOD DISORDER N CHRONIC EAR INFECTIONS N BRONCHITIS N TUBERCULOSIS N GLAUCOMA N FOOT PROBLEM N DIVERTICULITIS N CHICKENPOX N SLEEP APNEA N ALLERGIES/HAYFEVER N INFECTIOUS DISEASE N HEART ARRHYTHMIA N PROSTATE N INSOMNIA N HIGH CHOLESTEROL / HYPERLIPIDEMIA N HYPERTHYROIDISM N EYE PROBLEMS N EATING DISORDER N EDEMA N CHRONIC PAIN SYNDROME N CONSTIPATION N CAROTID BLOCKAGE N BACK / NECK PROBLEMS N HAVE YOU BEEN HOSPITALIZED OR SEEN IN [facility] IN THE PAST YEAR ? N ATHEROSCLEROSIS N BREAST PROBLEMS N DIALYSIS N ECZEMA N FIBROMYALGIA N OSTEOPOROSIS N ARTHRITIS Y NO SIGNIFICANT PAST MEDICAL HISTORY N APPENDICITIS N DIABETES, TYPE N BAD TEETH N HEARTBURN / REFLUX N ADD/ADHD N AUTISM SPECTRUM DISORDER (ASD) N HEPATITIS / LIVER DISEASE N PULMONARY DISEASE N GOUT N SLEEP DISORDER N ALZHEIMER'S DISEASE N PAIN N HERPES N DEMENTIA N HEADACHES/MIGRAINES N SEIZURES/EPILEPSY N VASCULAR DISEASE N PACEMAKER N DIZZINESS N HEART DISEASE/HEART PROBLEMS Y KIDNEY DISEASE N DEVELOPMENTAL OR BEHAVIORAL DISORDERS N MULTIPLE SCLEROSIS N SCARLET FEVER N MENTAL DISORDER/ILLNESS N CARDIAC ARRHYTHMIA N CANCER: SPECIFY N PNEUMONIA N ATRIAL FIBRILLATION N Gall Stones N PULMONARY EMBOLISM N AUTOIMMUNE DISEASE N Gynecological History Statement/Question Response Date of LMP 07/16/2022 Obstetrics History GPAL:G 1 P 1 0 0 0 Type Value Full Term 1 Total 1 Immunizations Vaccine Type Date Status Note Provider Nam e and Address Organization Details Recorded Time Influenza, split virus, quadrivalent, preservative 7 completed Not Available [facility] 11/28/2022 08:15:53 Td (adult) 1 completed Not Available [facility] 11/28/2022 08:15:53 Influenza, split virus, quadrivalent, PF 0 completed Not Available [facility] 11/28/2022 08:15:53 Influenza, split virus, quadrivalent, PF 7 completed Not Available [facility] 11/28/2022 08:15:53 Past Encounters Encounter ID Performer Location Encounter Start Date Encounter Closed Date Diagnosis/Indication Diagnosis SNOMED-CT Code Diagnosis ICD10 Code Diagnosis Note [id number] [facility] [address] [address] 11/29/2020 00:00:00 11/29/2020 14:34:25 [id number] [facility] [address] [address] 12/07/2020 00:00:00 12/30/2020 17:49:12 [id number] [facility] [address] [place] [address] 08/17/2021 00:00:00 08/17/2021 16:51:04 [id number] [facility] [address] [place] [address] 08/18/2021 00:00:00 08/21/2021 12:25:17 [id number] [facility] [address] [place] [address] 09/21/2021 00:00:00 09/21/2021 15:36:10 [id number] [facility] [address] [place] [address] 10/24/2021 00:00:00 10/24/2021 15:19:12 [id number] [facility] [address] [place] [address] 01/10/2022 00:00:00 01/10/2022 12:41:58 [id number] [facility] [address] [place] [address] 07/31/2022 00:00:00 07/31/2022 11:48:28 [id number] David Robert MD [facility] [address] [place] [address] 01/09/2024 12:12:49 01/09/2024 12:58:56 Obesity 344758976 E66.9 Anxiety disorder 2703226 06 F41.9 Posttrauma tic stress disorder 56817419 F43.10 Pain of bi lateral knee joints 8401593587 41984 M25.561 Pain of bi lateral hands 8341939373 4162674 M79.641 Bilateral wrist pain 434 0143006 6338131 M25.531 Migraine without aura 56 723330 G43.009 Samples given. [id number] David Robert MD [facility] [address] [place] [address] 11/10/2024 11:52:29 11/10/2024 12:35:19 Bilateral wrist pain [id number] 3153843 M25.531 OTC wrist splint as directed.R ICE explained in detail. Pain of bi lateral hands 5791093627 6542214 M79.641 Blood-tinged feces 99893 76682 81546 K92.1 Obesity 225649551 E66.9 Health Concerns Section Related Observation LastModified by Organization Detai ls LastModified Time None Recorded Concern Status LastModified by Organization Details LastModified Time None Recorded Advance Directives Directive Y: Payers Encounter Date Sequence Insurance Name Policy Number Policy Valdez Covered Member ID Valdez Member ID Guarantor Name 01/09/2024 1 [place] [id number] 2 Crystal L Dour [id number] Crystal Dour 11/10/2024 1 [place] [id number] 2 Crystal L Dour [id number] Crystal Dour Notes Date Note Type Note Provider Name and Address Organization Details Recorded Time 01/09/2024 text/html ACV: C/o b/l knees pain for last few years and wants to see Ortho for it. C/o b/l hands and wrists pain for last few years. Pt had EMG done last year for this. C/o chronic migraines and is out of her Imitrex. David Robert MD [address] [place] [address], [phone], [facility] 01/09/2024 12:56:09 11/10/2024 text/html ACV: C/o b/l wrist and hand pain for last few months, but last weekend, she was driving and heard a pop over her Rt wrist. Since than, her pain got more worse. Denies any other injury/workman's comp. Pt is already on Meloxicam for her chronic arthritis pain. C/o intermittent blood in stool and wants to see GI doctor for c-scope. No FH of colon cancer. David Robert MD [address] [facility], [facility] [address], [place], [address], [place] [facility] 11/10/2024 12:31:57 OBGyn Episode No OBEpisode recorded.
--- OUTSIDE RECORDS SUMMARY | 2024-11-20 15:46 | XMS_ITS | Referral Summary ---
Author Organization [facility] [place] [place] [address] [place] [address] Care Team Providers Care Laborer Vineyard Name Role Phone Roseanna Bernardo PLANT UTILITIES ENGINEER Primary Care Provider + Allergies Active Allergy [...] 05/01/2019-[facility]ner. Colon remote monitoring. Vasovagal syncope 12/26/2017 Social History Tobacco Use Types Packs/Day Years [...] on file Legal Sex Female 9:03 AM WOOD BORER Gender Identity Not on file Sexual Orientation Not on file Last Filed Vital Signs Vital Sign Reading Time Taken Comments Blood Pressure 140/90 08/19/2024 6:09 PM WOOD BORER Pulse 85 08/19/2024 6:09 PM WOOD BORER Temperature 36.6 C (97.8 F) 08/19/2024 12:24 PM WOOD BORER Respiratory Rate 18 08/19/2024 6:09 PM WOOD BORER Oxygen Saturation 98% 08/19/2024 6:09 PM WOOD BORER Inhaled Oxygen Concentration - - Weight 96.6 kg (213 lb) 08/19/2024 12:24 PM WOOD BORER Height 160 cm (5' 3 ) 08/19/2024 12:24 PM WOOD BORER Body Mass Index 37.73 08/19/2024 12:24 PM WOOD BORER Plan of Treatment Not on file Insurance [facility] ACCESS CHOICE ANTHEM ACCESS CHOICE ANTHEM ACCESS CHOICE Care Teams Laborer Vineyard Relationship Specialty Start Date End Date Roseanna Bernardo NP [address] [address] PCP - General Nurse Practitioner 04/23/19
--- OUTSIDE RECORDS SUMMARY | 2024-11-20 15:46 | XMS_ITS | Clinical Summary ---
Author Organization [facility] Address [address] [place] [address] Care Team Providers Care Erp Implementation Consultant Name Role Phone Roseanna Bernardo [facility] Primary Care Provider + Allergies Active Allergy Reactions Criticality Noted Date Comments Mometasone Unknown 09/15/2021 Morphine Other (see comment) Low 09/24/2023 Doesn't seem to work for the patient and irritate the stomach Penicillin V Other (see comment) 09/14/2021 Pt mother is deadly allergic, it has been assumed pt is also allergic. Penicillins Rash,Unknown Medium 12/26/2017 Vortioxetine Nausea and Vomiting Low 11/05/2019 Medications SUMAtriptan 50 MG tablet Take 1 tablet (50 mg total) by mouth 2 (two) times daily as needed for Migraine. Active albuterol sulfate HFA 108 (90 Base) MCG/ACT inhaler as needed. Act hoa PAROXETINE HCL OR Take 50 mg by mouth daily. 11/08/2021 Active Aripiprazole 20 MG Tab Take 2 tablets by mouth daily. 11/09/2021 Active amphetamine-dex troamphetamine 10 MG tablet Take 1 tablet (10 mg total) by mouth 2 (two) times daily. 20mg in morning 10mg in evening 11/08/2021 Active meloxicam (MOBIC) 15 MG tablet Take 1 tablet (15 mg total) by mouth daily. Active ondansetron (ZOFRAN) 8 MG tablet Take by mouth every 8 (eight) hours as needed for Nausea. Active Vitamin D3 125 mcg Tab Take 1 tablet (125 mcg total) by mouth daily. Active HYDROcodone-tiffany taminophen (NORCO) 5-325 MG tabletIndicatio ns:Acute Pain < 7 Day Supply Take 1-2 tablets by mouth every 4 (four) hours as needed for Pain. Indications: Acute Pain < 7 Day Supply 20 tablet 10/17/2023 Active Active Problems Problem Noted Date Diagnosed Date S/P ORIF (open reduction internal fixation) frac ture 09/16/2021 Ankle fracture 09/14/2021 Obsessive-compulsive disorder 09/14/2021 Posttraumatic stress disorder 09/14/2021 Aphthous ulcer of mouth 09/14/2021 Candidiasis of vagina 09/14/2021 Depressive disorder 09/14/2021 Disorder of nail 09/14/2021 Injury of nail 09/14/2021 Epidermoid cyst of skin 09/14/2021 Fatigue 09/14/2021 Pain in limb 09/14/2021 Migraine 09/14/2021 Pain in throat 09/14/2021 Pain of breast 09/14/2021 Hyperlipidemia 08/21/2021 Chronic obstructive lung disease ([facility]) 11/29/2020 Cough 11/29/2020 Anxiety disorder 09/17/2019 Arthritis 09/17/2019 Dizziness 09/17/2019 Obesity 09/17/2019 Paronychia of toe of left foot 09/17/2019 Paronychia of toe of right foot 09/17/2019 Headache 08/25/2019 Pain in right knee 04/01/2018 Family History Medical History Relation Comments No Known Problems Father Diabetes Maternal Grandfather Diabetes Maternal Grandmother No Known Problems Mother Relation Status Comments Father Alive Maternal Grandfather Maternal Grandmother Mother Alive Social History Tobacco Use Types Packs/Day Years Used Date Smoking Tobacco: Former Cigarettes Q uit: 09/29/2023 Smokeless Tobacco: Never Comments:Physician to dana yeung Alcohol Use Standard Drinks/Week Comments Yes 3.3 (1 standard drink = 0.6 oz p ure alcohol) regular drinker, not daily PHQ-2 Answer Date Recorded PHQ-2 Score - If the patient scores above 3, please move on to questions 3-9 0 11/06/2021 Comments No Sex and Gender Information Value Date Recorded Sex Assigned at Not on file Legal Sex Female 2:35 PM SURGICAL ASSIST Gender Identity Not on file Sexual Orientation Not on file Last Filed Vital Signs Vital Sign Reading Time Taken Comments Blood Pressure 133/70 10/17/2023 9:15 AM SURGICAL ASSIST Pulse 69 10/17/2023 9:15 AM SURGICAL ASSIST Temperature 36.7 C (98 F) 10/17/2023 9:15 AM SURGICAL ASSIST Respiratory Rate 18 10/17/2023 9:15 AM SURGICAL ASSIST Oxygen Saturation 98% 10/17/2023 9:15 AM SURGICAL ASSIST Inhaled Oxygen Concentration - - Weight 97.8 kg (215 lb 9.8 oz) 10/17/2023 6:40 A M SURGICAL ASSIST Height 160 cm (5' 3 ) 10/17/2023 6:40 AM SURGICAL ASSIST Body Mass Index 38.19 10/17/2023 6:40 AM SURGICAL ASSIST Plan of Treatment Health Maintenance Due Date Last Done Comments Annual Physical 1984 Pneumococcal Vaccine: Pediatrics (0 to 5 Years) and At-Risk Patients (6 to 64 Years) (1 of 2 - PCV) 1987 Hepatitis C 1999 Hepatitis B Vaccines (1 of 3 - 19+ 3-dose series) 2000 DTaP, Tdap and Td Vaccines ( 1 - Tdap) 11/20/2000 11/19/2000 Mammogram Screening 2021 COVID-19 Vaccine (2023-2 5 season) 2024 Influenza Adult (#1) 2024 08/04/2020, 07/15/2017, 07/11/2017 HPV Vaccines Aged Out No longer eligi ble based on patient's age to complete this topic Meningococcal B Vaccine Aged Out No l onger eligible based on patient's age to complete this topic Meningococcal Vaccine Aged Out No damián kala eligible based on patient's age to complete this topic RSV Immunizations Under 20 Months Aged Out No longer eligible b ased on patient's age to complete this topic Medical Devices Implanted Type Area M48 M60 Armor Crewman Device Identifier Shelf Expiration Date Model / Serial / Lot System Fixation Tightrope Xp Stainless Steel Syndesmosis Rep - [id number] Implanted:Qty: 1 on 09/15/2021 by Edwardo Mares MD at [facility] [place] Right: Ankle [employer] [id number] 02/27/2026 AR-8925SS / / [id number] System Fixation Tightrope Xp Stainless Steel Syndesmosis Rep - [id number] Implanted:Qty: 1 on 09/15/2021 by Edwardo Mares MD at [facility] [place] Right: Ankle [employer] [id number] 03/29/2026 AR-8925SS / / [id number] Locking Distal Fibula Plate Implanted:Qty: 1 on 09/15/2021 by Edwardo Mares MD at [facility] Plate Right: Ankle [employer] AR-8943BR -08 / / Low-Profile Screw 2.7 Cortical 18mm Implanted:Qty: 2 on 09/15/2021 by Edwardo Mares MD at [facility] Screw Right: Ankle [employer] [id number] AR-8827-1 8 / / Screw Locking Arthrex 2.7 X 12mm - [id number] Implanted:Qty: 1 on 09/15/2021 by Edwardo Mares MD at [facility] Screw Right: Ankle [employer] [id number] AR-8827L- 12 / / Screw Bone 2.7mm 14mm Low Profile Screws Stainless Steel T10 Full Thread Cortex Self Tap Lock Stardrive Solid Ankle Fracture Management - [id number] Implanted:Qty: 3 on 09/15/2021 by Edwardo Mares MD at [facility] Screw Right: Ankle [employer] [id number] AR-8827L- 14 / / 4mm, Cancellous,Long 50mm Implanted:Qty: 2 on 09/15/2021 by Edwardo Mares MD at [facility] Screw Right: Ankle [employer] [id number] AR-8840PL -50 / / Screw Bone 3.5mm 14mm Low Profile Screws Stainless Steel T15 Full Thread Cortex Self Tap St[employer] Solid Ankle Fracture Management - [id number] Implanted:Qty: 3 on 09/15/2021 by Edwardo Mares MD at [facility] Screw Right: Ankle [employer] [id number] AR-8835-1 4 / / Sling Obtryx Ii [facility] - [id number] Implanted:Qty: 1 on 10/17/2023 by Michael Bautista MD at [facility] Sling Flagr [place] [id number] 06/04/2026 [id number] [place] [address] [facility] Advance Directives * Full Code (Latest Code Status on File) Date Activated Date Inactivated Comments 09/24/2021 8:22 PM 10/17/2023 5:47 AM * Full Code Date Activated Date Inactivated Comments 09/14/2021 5:50 PM 09/16/2021 1:50 PM Care Teams Erp Implementation Consultant Relationship Specialty Start Date End Date Roseanna Bernardo, FINISHER [employer]- [address] [place] [id number] PCP - General NURSE PRACTITIONER 09/14/21
--- OUTSIDE RECORDS SUMMARY | 2024-11-20 15:46 | XMS_ITS | Encounter Summary ---
Author Organization [facility] Address [address] [place] [id number] Care Team Providers Care Trapeze Performer Name Role Phone Roseanna Bernardo Kristen [facility] Primary Care Provider + Encounter Details Date Type Department Care Team (Late st Contact Info) Description 10/12/[address] [facility] [facility] [place] [address] Michael Bautista MD [address] [facility] [place] [address] Social History Tobacco Use Types Packs/Day Years Used Date Smoking Tobacco: Every Day Cigarettes Smokeless Tobacco: Never Comments:Physician to dana yeung [...] on file Legal Sex Female 2:35 PM COMMISSION CLERK Gender Identity Not on file Sexual Orientation Not on file documented as of this encounter Functional Status * RETIRED Are you deaf or do you have serious difficulty hearing Answer Date of Assessment Author Status No 09/15/2021 12:44 AM COMMISSION CLERK Acti ve * RETIRED Are you blind or do you have serious difficulty seeing, even when wearing glasses? Answer Date of Assessment Author Status No 09/15/2021 12:44 AM COMMISSION CLERK Acti ve * Do you have serious difficulty walking or climbing stairs? Answer Date of Assessment Author Status Yes 09/15/2021 12:44 AM Elfego Mcnamara RN Active * Do you have difficulty dressing or bathing? Answer Date of Assessment Author Status Yes 09/15/2021 12:44 AM Elfego Mcnamara RN Active * Because of a physical, mental, or emotional condition, do you have difficulty doing errands alone such as visiting a doctor's office or shopping? Answer Date of Assessment Author Status No 09/15/2021 12:44 AM Elfego Mcnamara RN Active documented as of this encounter Mental Status * Because of a physical, mental, or emotional condition, do you have serious difficulty concentrating, remembering, or making decisions? Answer Entry Date Author Status No 09/15/2021 12:44 AM Elfego Mcnamara RN Active documented in this encounter H&P Notes * Michael Bautista MD - 10/12/2023 3:27 PM CST History and Physical SUBJECTIVE Patient is 43-year-old female White Or Not Of / Origin with chief complaintof stress urinary incontience. She desires definitive surgical management. Past Medical History: Diagnosis Date ADHD Bipolar 1 disorder (CMS/HCC) Migraines Personality disorder (CMS/HCC) PTSD (post-traumatic stress disorder) Syncope Past Surgical History: Procedure Laterality Date FRACTURE SURGERY 09/15/2021 ORIF Right ankle RETINAL DETACHMENT SURGERY Left Retinal tear, not detatched (Not in a hospital admission) Current Outpatient Medications Medication Sig Dispense Refill albuterol sulfate HFA 108 (90 Base) MCG/ACT inhaler as needed. amphetamine-dextroamphetamine 10 MG tablet ARIPiprazole 10 MG tablet Take 1 tablet by mouth daily. benzonatate 200 MG capsule Take 200 mg by mouth 2 (two) times daily as needed for Cough. budesonide-formoterol 160-4.5 MCG/ACT inhaler Inhale 2 puffs into the lungs 2 (two) times daily. Indications: Unsure of dose diclofenac EC 75 MG tablet diclofenac sodium 75 mg tablet,delayed release ELIQUIS 5 MG tablet PARoxetine 20 MG tablet Take 20 mg by mouth daily. SUMAtriptan 50 MG tablet Take 50 mg by mouth 2 (two) times daily as needed for Migraine. No current facility-administered medications for this visit. Allergies Allergen Reactions Penicillins Rash and Unknown Mometasone Unknown Pcn [Penicillin V] Other (see comment) Pt mother is deadly allergic, it has been assumed pt is also allergic. Vortioxetine Nausea and Vomiting Social History Tobacco Use Smoking status: Every Day Packs/day: 1 Types: Cigarettes Smokeless tobacco: Never Tobacco comments: Physician to developmental training counselor. Substance Use Topics Alcohol use: Yes Alcohol/week: 3.3 - 5.0 standard drinks of alcohol Types: 2 - 3 Cans of beer per week Comment: regular drinker, not daily Family History Problem Relation Name Age of Onset Diabetes Maternal Grandmother Diabetes Maternal Grandfather Physical Exam: General: Patient is alert and oriented in no acute distress. Head: Normocephalic, atraumatic. Nares are symmetric without nasal flaring or respiratory distress.No lip cyanosis. Eyes: Sclera anicteric. Cardiovascular: Peripheral perfusion appears adequate. No digital clubbing or cyanosis present. Chest: Non-labored respirations. Comfortable respiratory effort without recruitment of accessory respiratory muscles. Abdominal: Abdomen soft, nontender, nondistended. No palpable masses. Gu: Urethral mobility noted Musculoskeletal: Normal station and posture. Moves all extremities symmetrically. Neurological: No focal neurologic deficit. Psychiatric: Appropriate affect and mood. Skin: Normal coloration and turgor. Hematological/Immunological: No bleeding gums or jaundice. Lymphatic: No femoral or inguinal palpable lymphadenopathy. Assessment: Stress Urinary Incontinence Plan: Pt has elected to undergo Mid-urethral sling. Risks, benefits and alternative d/w the patient. Risks include but not limited to bleeding, infection, pain, anesthesia, damage to surrounding organs. There is a risk of failure, recurrance and that this procedure will not help OAB symptoms if present and in some cases may worsen. There is a risk of mesh erosion or exposure in the vagina or urinary tract. There is a risk of urinary retention requiring catheterization and secondary procedure to lossen, cut or remove the sling. There is a risk of returning to the OR for any of the above listed complications. Patient understands and wishes to proceed. ISSION CLERK documented in this encounter Plan of Treatment Not on file documented as of this encounter Visit Diagnoses Not on filedocumented in this encounter Additional Health Concerns Assessment Noted Time PHQ-9 Depression Total Score: 0 11/06/19 22 2:44 PM COMMISSION CLERK documented as of this encounter Care Teams Trapeze Performer Relationship Specialty Start Date End Date Roseanna Bernardo, TAKER DOWN- [address] [id number] PCP - General NURSE PRACTITIONER 09/14/21 documented as of this encounter
== END 2024-11-20 15:42 | disposition home or self-care (01) ==
LOC: ANHIMG 15:43
PROVIDERS: PCP Family Medicine; Visit Provider Family Medicine
DX: M21.832 Other specified acquired deformities of left forearm (principal); M21.831 Other specified acquired deformities of right forearm; M19.042 Primary osteoarthritis, left hand; M19.041 Primary osteoarthritis, right hand
CPT/HCPCS: 73110; 73130

== ENCOUNTER 2025-01-18 09:45 | Outpatient (RCR) | payer BC, SELFPAY ==
--- NOTE | 2025-01-07 11:56 | OTOPEVAL1 ---
Assessment and note entered by HAIM Blanton/Kristen, ASHLEYT OT Evaluation Information 01/07/25 Assessment Status Evaluation Diagnosis G56.03 bilateral carpal tunnel syndrome; M56.90 Unspecified tenosynovitis Subjective Information Patient reports bilateral hand symptoms, right worse than left. She is right handed. She reports wrist and finger pain. She has been wearing bilateral wrist immobilizers for about a month. She reports she lives alone and has to get things done , regarding cleaning, cooking, etc. So she is unable to wear the immobilizers much during the day. She reports constant pain. She reports difficulties with being able to respiratory director and carry items and she frequently drops items. She has to carry items using her arm/elbow instead of a respiratory director. 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 She enjoys to damien and write ( handwrite) and she reports both of these tasks are very painful and she hasn't done them in a long time. Assessment OT Clinical Summary Patient referred to OT with bilateral hand/wrist pain and dx of bilateral tenosynovitis and carpal tunnel syndrome. She presents with pain and gross weakness that impacts her ability to respiratory director, lift, and carry items. She was able to complete median nerve tensioner exercise and median nerve flossing exercise without onset of paresthesia. Issued stretching HEP and tendon glide HEP. Continued follow up indicated for use of modalities, manual therapy, therapeutic exercise, and HEP progression to reduce pain and improve functional strength and use of bilateral UEs. Plan of Care Interventions Therapeutic Exercise,Manual Therapy,Therapeutic Activities,Hot Pack/Cold Pack,Ultrasound,Paraffin OT Services Indicated Yes Treatment Frequency and 2x/week for 8 visits Duration These treatments will address the objective and functional deficits as defined above. The patient will be advanced safely and appropriately in order for the patient to progress towards his/her prior level of function. Additional exercises will be introduced and as well as a comprehensive home exercise program upon discharge, if needed, ?to ensure carryover of functional gains achieved in the clinic. This treatment plan has been reviewed and agreement upon by the patient.
--- NOTE | 2025-01-07 11:56 | OPREHPOC ---
Outpatient Therapy Plan of Care This is a Multidisciplinary Plan of Care that may contain components documented by all disciplines (PT, OT, and ST.) OT Problem 1 OT Problem #1 Knowledge Deficit OT Goal 1 Goal / Goal Update Patient to be independent with instructed materials. Target Visit 8 OT Problem 2 OT Problem #2 Pain OT Goal 1 Goal / Goal Update Patient to report pain 0/10 at rest. Target Visit 8 OT Goal 2 Goal / Goal Update Patient to report pain during ADLs to 2/10 at worst in bilat hands/wrists. Target Visit 8 OT Problem 3 OT Problem #3 Impaired Strength OT Goal 1 Goal / Goal Update Patient to be able to tolerate progressive therapeutic strengthening exercises to increase gross strength for ADLs as measured by: - progressing to 2 lb. strengthening for wrist - progressing to yellow putty for red leader/pinch strengthening Target Visit 8
--- NOTE | 2025-01-11 09:41 | PCOTNOTE ---
Patient called & cancelled 10 minutes prior to scheduled appointment this date due to having to see a building and grounds supervisor.
--- NOTE | 2025-01-25 12:32 | PCOTNOTE ---
Pt. did not arrive for 11 am appointment in OP on this date. Pt. called, but does not have voicemail setup. No message could be left.
--- NOTE | 2025-01-29 15:25 | PCOTNOTE ---
Pt. did not call or show up for 2:15 appointment. Pt. called with no answer, unable to leave voice message.
--- NOTE | 2025-02-05 11:00 | OTOPDC ---
Assessment and note entered by Ricky Connell, HAIM/Kristen, CHT OT Discharge Notification 02/05/25 Diagnosis G56.03 bilateral carpal tunnel syndrome; M56.90 Unspecified tenosynovitis OT Clinical Summary Patient referred to OT with bilateral hand/wrist pain and dx of bilateral tenosynovitis and carpal tunnel syndrome. She has only attended 3 appointments and has not shown for the remaining appointments. We are unable to get a hold of her at this time. Limited progress with therapy due to noncompliance and poor attendance. Discharging at this time.
== END 2025-02-05 11:56 | disposition home or self-care (01) ==
LOC: ANHOT 09:45
PROVIDERS: PCP Family Medicine; Visit Provider Plastic Surgery
DX: G56.03 Carpal tunnel syndrome, bilateral upper limbs (principal); M65.90 Unspecified synovitis and tenosynovitis, unspecified site
CPT/HCPCS: 97018; 97110; 97140; 97166; 97530

== ENCOUNTER 2025-02-09 13:47 | Outpatient (CLI) | payer BC, SELFPAY ==
--- OUTSIDE RECORDS SUMMARY | 2025-02-09 14:08 | XMS_ITS | Data Portability ---
Author Organization [place] - [facility] [employer] Main Office Address [address] [place] [address] Care Team Providers Care Aerospace Assembler Name Role Phone DAVID ROBERT Primary Care Provider [phone] Assessment No assessment recorded. Plan of Treatment Reminders Order Date Submit Date Provider Last Modified By Organization Details Last Modified Time Details Appointments None recorded. Lab None recorded. Referral hand surgeon referral - Please call patient to schedule an appointmen t. Thank you. 2024 025 GRACE Coreas MD, [address], [place], [place], [address], 5 10:46:55 gastroente rologist referral - Please call patient to schedule an appointmen t. Thank you. 2024 025 [email or web address] Destin Mendez MD, [address] [place], [address], 5 08:45:04 orthopedic surgeon referral - Please call patient to schedule an appointmen t. Thank you. 2023 024 [email or web address] [facility], [address], [place], [address], 4 08:46:20 Procedures None recorded. Surgeries None recorded. Imaging XR, hand, 3 or more view 2024 025 [email or web address] [facility], [address], [place], [address], 5 08:47:56 XR, wrist, 3 or more view 2024 025 [email or web address] [facility], [address] [address], [place], [address], 5 08:14:07 XR, hand, 3 or more view 2023 024 [email or web address] 56 Not available 4 08:55:34 XR, wrist, 3 or more view 2023 024 [email or web address] 56 Not available 4 08:51:04 XR, knee, 3 view 2023 024 [email or web address] 56 Not available 4 08:55:34 Medication Orders Medrol (Shahid) 4 mg tablets in a dose pack 2024 025 [facility], [address] [place], [address], 5 16:52:34 ketorolac 30 mg/mL (1 mL) injection solution 2024 025 [email or web address] Not available 5 17:47:45 tramadol 50 mg tablet 2024 025 [facility], [address] [place], [address], 5 12:14:15 Ubrelvy 100 mg tablet 2023 024 [email or web address] [facility] [place]2510, [address] [place], [address], 4 12:50:17 sumatripta n 100 mg tablet 2023 024 [facility], [address] [place], [address], 4 12:38:30 meloxicam 7.[address] [facility] [place]Pharmacy #2510, [address] [place], [address], 4 12:38:30 Patient TargetsNo targets recorded. Patient InstructionsNo instructions recorded. Reason for Referral Orthopedic Surgeon Referral for Pain of bilateral knee joints Please call patient to schedule an appointment. Thank you. Referring Physician: David Robert [facility], Encounter Date: 01/09/2024 School Photographs Detailer Referral for Blood-tinged feces Please call patient to schedule an appointment. Thank you. Referring Physician: David Robert [facility], Encounter Date: 11/10/2024 Hand Surgeon Referral for Bi lateral wrist pain Acute on chronic pain, x-rays done. Please call patient to schedule an appointment. Thank you. Referring Physician: David Robert [facility], Encounter Date: 11/26/2024 Results Created Date Observation Date Name Description Value Unit Range Abnormal Flag Note LastModifiedBy Organization Detail LastModifiedTime 11/15/1911/15/2022 elect romyo gram + nerve condu ction study No observ ation record ed. [email or web address] [place] [address] [address] [facility], [place], [address], 01/09/2024 12:26:56 11/20/19 25 11/20/2024 XR, hand, 3 or more view No observ ation record ed. [email or web address] [place] [address], [address], 11/26/2024 16:46:42 Result Notes None recorded. Problems Name Problem SNOMED Code Status Onset Date Resolution Date Notes Provider Name and Address Organization Details Recorded Time Paronychi a of toe of left foot 81746300771 063040 Active 2018 Not Available [facility] 3 08:10:56 Paronychi a of toe of right foot 26279007583 135217 Active 2018 Not Available [facility] 3 08:10:56 Bilateral wrist pain 08064595524 580522 Active 2021 Not Available [facility] 3 08:10:56 Chronic obstructi ve pulmonary disease 20178195 Active 2020 Not Available [facility] 3 08:10:56 Fracture of ankle 41363369 Active 2020 Not Available [facility] 3 08:10:56 Pain in throat 161797858 Completed Not Available [facility] 3 08:10:56 Disorder of nail 11971195 Completed Not Available [facility] 3 08:10:56 Obsessive -compulsi ve disorder 491185267 Active Not Available [facility] 3 08:10:56 Anxiety disorder 543759716 Active 2018 Not Available [facility] 3 08:10:56 Feeling stressed 873893776 Completed Not Available [facility] 3 08:10:57 Fluid level behind tympanic membrane Completed Not Available [facility] 3 08:10:57 Headache 57466238 Active 2018 Not Available [facility] 3 08:10:57 Abnormal weight loss 053102533 Completed Not Available [facility] 3 08:10:57 Injury of nail 231576210 Completed Not Available [facility] 3 08:10:57 Knee pain Active Not Available [facility] 3 08:10:57 Pain in right knee Active 2017 Not Available [facility] 3 08:10:57 Depressiv e disorder 47826275 Active Not Available [facility] 3 08:10:57 Sinusitis 00447130 Completed Not Available [facility] 3 08:10:57 Arthritis 9376218 Active 2018 Not Available [facility] 3 08:10:57 Migraine 53087421 Active Not Available [facility] 3 08:10:57 Paronychi a of toe 969022744 Completed Not Available [facility] 3 08:10:57 Deep venous thrombosi s of lower extremity 150324483 Active 2021 Not Available [facility] 3 08:10:57 Dizziness 634509285 Active 2018 Not Available [facility] 3 08:10:58 Obesity 317071522 Active 2018 Not Available [facility] 3 08:10:58 Epidermoi d cyst of skin 038450563 Completed Not Available [facility] 3 08:10:58 Aphthous ulcer of mouth 699500273 Completed Not Available [facility] 3 08:10:58 Posttraum atic stress disorder 12790999 Active Not Available [facility] 3 08:10:58 Anxiety 71364986 Active Not Available [facility] 3 08:10:58 Cough 60654019 Active 2020 Not Available [facility] 3 08:10:58 Pain of breast 16171808 Completed Not Available [facility] 3 08:10:58 Upper respirato ry infection 08332770 Completed Not Available [facility] 3 08:10:58 Hyperlipi demia 45334866 Active 2020 Not Available [facility] 3 08:10:59 Unable to concentra te 45980082 Active Not Available [facility] 3 08:10:59 Thrombocy tosis 0967772 Active 2021 Not Available [facility] 3 08:10:59 Candidias is of vagina 69065976 Completed Not Available [facility] 3 08:10:59 Posterior rhinorrhe a 18934505 Completed Not Available [facility] 3 08:10:59 Fatigue 65123526 Completed Not Available [facility] 3 08:10:59 Pain in limb 04724185 Active Not Available [facility] 3 08:10:59 Osteoarth ritis 961911634 Active 2022 Roseanna Bernardo NP [address], [place], [address] , [facility] 3 14:42:46 Pain of bilateral knee joints 96352387821 4104 Active 2023 David Robert MD [address], [place], [address] , [facility] [employer] [facility] 4 12:30:50 Pain of bilateral hands 06103326435 303949 Active 2023 David Robert MD [address] [facility] [address], [place], [address] , [facility] [employer] [facility] [employer] [facility] 4 12:32:19 Migraine without aura 35951410 Active 2023 David Robert MD [address] [address], [place], [address] , [facility] [employer] [facility] [employer] [facility] 4 12:34:23 Blood-tin ged feces 12689133192 4102 Active 2024 David Robert MD [address] [facility], [address] [address], [place], [address] , [facility] [employer] [facility] [employer] [facility] 5 12:12:00 Problem Notes None recorded. Procedures Surgical History Date Name Laterality Status Provider Name and Address Organization Details Recorded Time Ankle Surgery completed Not Available [facility] 11/28/2022 08:07:27 Imaging Results Imaging Date Name Status LastModified by Organization Details LastModified Time 11/15/2022 electromyogram + nerve conduction study completed [address], [address], 01/09/2024 12:26:56 11/20/2024 XR, hand, 3 or more view completed [address], [address], 11/26/2024 16:46:42 Procedure Notes None recorded. Medical Equipment None Reported. Allergies Allergen ID Allergen Name Allergen Category Reaction Reaction Severity Criticality Documentation Date Start Date Code Code System Note Provider Name and Address Organization Details Recorded Time Product containin g penicilli n (product) medicatio n Not available Not available Not available 11/28/2022 52177 8001 SNOMED Not Available [facility] 3 08:16:03 Nasonex medicatio n Not available Not available Not available 11/28/2022 76055 6 RxNorm Not Available [facility] 3 08:16:03 35646 amoxicill in medicatio n rash Not available Not available 11/28/2022 723 RxNorm Not Available [facility] 3 08:16:04 73171 vortioxet ine hydrobrom ritchie medicatio n vomiting mild low 11/10/20242018 45431 34 RxNorm Anne Marie Vera RN [facility], [place] [employer] [facility] 5 12:03:25 Medications Name Sig Start Date [...] mg tablet take one tablet twice daily [id number] 12/10 completed Not Available Not Available Not [...] HOURS NEEDED FOR PAIN OR ACUTE PAIN 04/11 /2024 completed Not Available Not Available Not Available Celestone Soluspan 6 mg/mL suspensio n for injection active [facility]# 81892-98 - Not Available Not Available Not Available [...] MOUTH EVERY 8 HOURS NEEDED FOR PAIN active Not Available Not Available No t Available quetiapin e 100 mg tablet TAKE 1 [...] every month by intramus cular route. active [facility]# 30427-06 Not Available Not Available Not Available buspirone [...] 4 mg tablets in a dose pack Take as directed active Not Available Not Available No t Available albuterol sulfate HFA 90 mcg/actua tion [...] Available Not Available Ubrelvy 100 mg tablet active Not Available Not Available Not Available ID NOW COVID-19 Test Kit TEST [...] % 97 % 97 /min 96.7 [degF] 58806.3 8 g 144 mm[Hg] 84 mm[Hg] Not Available [facility] 3 08:07:59 Date Recorded Body mass index (BMI) Body height Oxygen saturation Oxygen saturation in Arterial blood by Pulse oximetry Heart rate Body temperature Body weight Systolic blood pressure Diastolic blood pressure Provider Name and Address Organization Details Last Updated DateTime 2 36 kg/m2 160.02 cm 96 % 96 % 106 /min 96.6 [degF] 61120.2 5 g 130 mm[Hg] 68 mm[Hg] Not Available [facility] 3 08:07:59 Date Recorded Body height Body mass index (BMI) Body weight Body temperature Heart rate Respiratory rate Oxygen saturation Oxygen saturation in Arterial blood by Pulse oximetry Provider Name and Address Organization Details Last Updated DateTime 4 170.18 cm 33.8 kg/m2 85447.3 g 98.1 [degF] 80 /min 20 /min 97 % 97 % Satinder Camilo [facility] [employer] [facility] 4 12:22:38 Date Recorded Systolic blood pressure Diastolic blood pressure Provider Name and Address Organization Details Last Updated DateTime 01/09/2024 140 mm[Hg] 84 mm[Hg] David Robert MD [address] [facility], [address], [address], [facility] [employer] [facility] 01/09/2024 12:27:07 Date Recorded Body height Body mass index (BMI) Body weight Body temperature Heart rate Systolic blood pressure Diastolic blood pressure Provider Name and Address Organization Details Last Updated DateTime 5 160.02 cm 35.6 kg/m2 28648.4 7 g 97.5 [degF] 73 /min 132 mm[Hg] 82 mm[Hg] Anne Marie Vera RN [facility] [employer] [facility] 5 12:02:27 Date Recorded Oxygen saturation Oxygen saturation in Arterial blood by Pulse oximetry Provider Name and Address Organization Details Last Updated DateTime 11/10/2024 96 % 96 % David Robert MD [address] [facility], [address], [address] [employer] [facility] 11/10/2024 12:27:48 Date Recorded Body height Body mass index (BMI) Body weight Body temperature Oxygen saturation Oxygen saturation in Arterial blood by Pulse oximetry Heart rate Systolic blood pressure Diastolic blood pressure Provider Name and Address Organization Details Last Updated DateTime 5 160.02 cm 36 kg/m2 52252.6 g 97.2 [degF] 98 % 98 % 81 /min 130 mm[Hg] 80 mm[Hg] Anne Marie Vera RN [facility] [employer] [facility] 16:45:42 Social History Question Answer Notes LastModified by Organizat ion Details LastModified Time Tobacco Smoking Status Current Every Day Smoker Not Available [facility] 11/28/2022 08:07:03 Do You Have An Advance Directive? Yes [id number] Information not available 11/28/2022 What Is Your Level Of Caffeine Consumption? Heavy MIGRATION.43550 [id number] Information not available 11/28/2022 In The 14 Days Before Symptom Onset, Have You Had Close Contact With A Laboratory-win rmed COVID-19 While That Case Was Ill? No MIGRATION.[id number] [id number] Information not available 11/28/2022 In The 14 Days Before Symptom Onset, Have You Had Close Contact With A Person Who Is Under Investigation For COVID-19 While That Person Was Ill? No MIGRATION.76439 61105 Information not available 11/28/2022 What Type Of Diet Are You Following? REGULAR MIGRATION.71314 98707 Information not available 11/28/2022 Which Illicit Or Recreational Drugs Have You Used? Marijuana MIGRATION.97632 78523 Information not available 11/28/2022 What Is The Highest Grade Or Level Of School You Have Completed Or The Highest Degree You Have Received? AP18775-4 MIGRATION.71567 00797 Information not available 11/28/2022 Have There Been Any Changes To Your Family Or Social Situation? No MIGRATION.04624 99536 Information not available 11/28/2022 What Is The Fluoride Status Of Your Home? Unknown MIGRATION.49278 73866 Information not available 11/28/2022 Do You Use Insect Repellent Routinely? No MIGRATION.59063 05136 Information not available 11/28/2022 Where Do You Live? [facility] [id number]|2025-02-09 14:08:00|2025-02-09 14:08:00|XMS_ITS|PASQUALE ROLLE|External Medical Summaries|[id number]|" Clinical Summary Created on: February 09, 2025 Cheli Montanez : 1980 Sex: Female Author Organization [facility] [address] [facility] [address] Address [address] [place] [address] Care Team Providers Care Aerospace Assembler Name Role Phone Roseanna Bernardo NP Primary Care Provider + Allergies Active Allergy [...] implantable loop record er 05/01/2019 Overview (05/01/2019): [employer] Reveal Implanted Loop Recorder. Dx; Syncope. DOI 05/01/2019-Christine. Isaiah remote monitoring. 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 Gender Identity Not on file Sexual Orientation Not on file Obstetrics History Last Filed Vital Signs Vital Sign Reading Time Taken Comments Blood Pressure 140/90 08/19/2024 6:09 PM AWARD MACHINE OPERATOR Pulse 85 08/19/2024 6:09 PM AWARD MACHINE OPERATOR Temperature 36.6 C (97.8 F) 08/19/2024 12:24 PM AWARD MACHINE OPERATOR Respiratory Rate 18 08/19/2024 6:09 PM AWARD MACHINE OPERATOR Oxygen Saturation 98% 08/19/2024 6:09 PM AWARD MACHINE OPERATOR Inhaled Oxygen Concentration - - Weight 96.6 kg (213 lb) 08/19/2024 12:24 PM AWARD MACHINE OPERATOR Height 160 cm (5' 3 ) 08/19/2024 12:24 PM AWARD MACHINE OPERATOR Body Mass Index 37.73 08/19/2024 12:24 PM AWARD MACHINE OPERATOR Plan of Treatment Health Maintenance Due Date Last Done Comments Breast Cancer Screening-Mammogram 1980 Depression Screening 1980 Hepatitis C Screening 1981 Varicella Vaccines (1 of 2 - 13+ 2-dose series) 1994 Hepatitis B Screening 1999 Regular Well Visit/Exam 18-64 1999 Pneumococcal vaccine <65 (1 of 2 - PCV) 2000 DTaP/Tdap/Td Vaccine (1 - Tdap) 11/20/2000 11/19/2000 Influenza Vaccine (#1) 2024 0, 07/15/2017, 07/11/2017 HPV Vaccines Aged Out No longer eligi ble based on patient's age to complete this topic Insurance [facility] ACCESS CHOICE ANTHEM ACCESS CHOICE ANTHEM ACCESS CHOICE Care Teams Aerospace Assembler Relationship Specialty Start Date End Date Roseanna Bernardo NP PCP - General Nurse Practitioner 04/23/19 "
--- OUTSIDE RECORDS SUMMARY | 2025-02-09 14:08 | XMS_ITS | Referral Summary ---
Author Organization [facility] [address] Address [address] [place] [address] Care Team Providers Care Civil Engineering Project Manager Name Role Phone Roseanna Bernardo Columba FERRYBOAT OPERATOR CABLE Primary Care Provider + Allergies Active Allergy [...] on file Legal Sex Female 9:03 AM JUVENILE PROBATION OFFICER Gender Identity Not on file Sexual Orientation Not on file Last Filed Vital Signs Vital Sign Reading Time Taken Comments Blood Pressure 140/90 08/19/2024 6:09 PM JUVENILE PROBATION OFFICER Pulse 85 08/19/2024 6:09 PM JUVENILE PROBATION OFFICER Temperature 36.6 C (97.8 F) 08/19/2024 12:24 PM JUVENILE PROBATION OFFICER Respiratory Rate 18 08/19/2024 6:09 PM JUVENILE PROBATION OFFICER Oxygen Saturation 98% 08/19/2024 6:09 PM JUVENILE PROBATION OFFICER Inhaled Oxygen Concentration - - Weight 96.6 kg (213 lb) 08/19/2024 12:24 PM JUVENILE PROBATION OFFICER Height 160 cm (5' 3 ) 08/19/2024 12:24 PM JUVENILE PROBATION OFFICER Body Mass Index 37.73 08/19/2024 12:24 PM JUVENILE PROBATION OFFICER Plan of Treatment Not on file Insurance ON LICENSE OF [facility] ACCESS CHOICE ANTHEM ACCESS CHOICE ANTHEM ACCESS CHOICE Care Teams Civil Engineering Project Manager Relationship Specialty Start Date End Date Roseanna Bernardo NP PCP - General Nurse Practitioner 04/23/19
--- OUTSIDE RECORDS SUMMARY | 2025-02-09 14:08 | XMS_ITS | CONTINUITY OF CARE DOCUMENT ---
Author Name prieto moreau Address Unknown Organization [facility] Address [address] [place] [address] Phone [phone] Care Team Providers Care Teaching Music Lessons Name Role Phone Charles Kruse MD Unavailable BRAEDEN YAN Unavailable [phone] BRAEDEN YAN Unavailable [phone] INSURANCE PROVIDERS Payer name Policy type / Coverage type [place] red republican ID CIGNA\[facility] [employer] insurance company [id number]
--- OUTSIDE RECORDS SUMMARY | 2025-02-09 14:09 | XMS_ITS | Clinical Summary ---
Author Organization [facility] Address [address] [place] [address] Care Team Providers Care Electronics Assembler Name Role Phone Roseanna Bernardo [facility] Primary Care Provider + Allergies Active [...] 09/14/2021 Hyperlipidemia 08/21/2021 Chronic obstructive lung disease (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 Gender Identity Not on file Sexual Orientation Not on file Last Filed Vital Signs Vital Sign Reading Time Taken Comments Blood Pressure 133/70 10/17/2023 9:15 AM INSURANCE FOLLOW UP SPECIALIST Pulse 69 10/17/2023 9:15 AM INSURANCE FOLLOW UP SPECIALIST Temperature 36.7 C (98 F) 10/17/2023 9:15 AM INSURANCE FOLLOW UP SPECIALIST Respiratory Rate 18 10/17/2023 9:15 AM INSURANCE FOLLOW UP SPECIALIST Oxygen Saturation 98% 10/17/2023 9:15 AM INSURANCE FOLLOW UP SPECIALIST Inhaled Oxygen Concentration - - Weight 97.8 kg (215 lb 9.8 oz) 10/17/2023 6:40 A M INSURANCE FOLLOW UP SPECIALIST Height 160 cm (5' 3 ) 10/17/2023 6:40 AM INSURANCE FOLLOW UP SPECIALIST Body Mass Index 38.19 10/17/2023 6:40 AM INSURANCE FOLLOW UP SPECIALIST Plan of Treatment Health Maintenance Due Date Last Done Comments Annual Physical 1984 Hepatitis C 1999 Hepatitis B Vaccines (1 of 3 - 19+ 3-dose series) 2000 Pneumococcal Vaccine: Pediat rics (0 to 5 Years) and At-Risk Patients (6 to 49 Years) (1 of 2 - PCV) 2000 DTaP, Tdap and Td Vaccines ( 1 - Tdap) 11/20/2000 11/19/2000 Mammogram Screening 2021 COVID-19 Vaccine (2023-2 5 season) 2024 HPV Vaccines Aged Out No longer eligi ble based on patient's age to complete this topic Meningococcal B Vaccine Aged Out No l onger eligible based on patient's age to complete this topic Meningococcal Vaccine Aged Out No damián kala eligible based on patient's age to complete this topic RSV Immunizations Under 20 Months Aged Out No longer eligible based on patient's age to complete this topic Medical Devices Implanted Type Area Internal Affairs Commander Device Identifier Shelf Expiration Date Model / Serial / Lot System Fixation Tightrope Xp Stainless Steel Syndesmosis Rep - [id number] Implanted:Qty: 1 on 09/15/2021 by Edwardo Mares MD at [facility] [place] Right: Ankle [employer] [id number] 02/27/2026 AR-[id number] / / [id number] System Fixation Tightrope Xp Stainless Steel Syndesmosis Rep - [id number] Implanted:Qty: 1 on 09/15/2021 by Edwardo Mares MD at [facility] [place] Right: Ankle [employer] [id number] 03/29/2026 AR-[id number] / / [id number] Locking Distal Fibula Plate Implanted:Qty: 1 on 09/15/2021 by Edwardo Mares MD at [facility] Plate Right: Ankle [employer] [id number] -08 / / Low-Profile Screw 2.7 Cortical 18mm Implanted:Qty: 2 on 09/15/2021 by Edwardo Mares MD at [facility] Screw Right: Ankle [employer] [id number] AR-8827-1 8 / / Screw Locking Arthrex 2.7 X 12mm - [id number] Implanted:Qty: 1 on 09/15/2021 by Edwardo Mares MD at [facility] Screw Right: Ankle [employer] [id number] AR-8827L- 12 / / Screw Bone 2.7mm 14mm Low Profile Screws Stainless Steel T10 Full Thread Cortex Self Tap Lock Stardrive Solid Ankle Fracture Management - [id number] Implanted:Qty: 3 on 09/15/2021 by Edwardo Mares MD at [facility] Screw Right: Ankle [employer] [id number] AR-8827L- 14 / / 4mm, Cancellous,Long 50mm Implanted:Qty: 2 on 09/15/2021 by Edwardo Mares MD at [facility] Screw Right: Ankle [employer] [id number] AR-[id number] -50 / / Screw Bone 3.5mm 14mm Low Profile Screws Stainless Steel T15 Full Thread Cortex Self Tap [employer] Solid Ankle Fracture Management - [id number] Implanted:Qty: 3 on 09/15/2021 by Edwardo Mares MD at [facility] Screw Right: Ankle [employer] [id number] AR-8835-1 4 / / Sling Obtryx Ii Halo - [id number] Implanted:Qty: 1 on 10/17/2023 by Michael Bautista MD at [facility] [employer] [facility] [id number] 06/04/2026 [id number] / / [id number] [place] [address] [facility] Advance Directives * Full Code (Latest Code Status on File) Date Activated Date Inactivated Comments 09/24/2021 8:22 PM 10/17/2023 5:47 AM * Full Code Date Activated Date Inactivated Comments 09/14/2021 5:50 PM 09/16/2021 1:50 PM Care Teams Electronics Assembler Relationship Specialty Start Date End Date Roseanna Bernardo, CARD FOLDER- [address] [place] [address] PCP - General NURSE PRACTITIONER 09/14/21
--- OUTSIDE RECORDS SUMMARY | 2025-02-09 14:09 | XMS_ITS | Data Portability ---
Author Organization [facility] [place] [place] Address [address] [place] [address] Assessment No assessment recorded. Plan of Treatment Reminders Order Date Submit Date Provider Last Modified By Organization Details Last Modified Time Details Appointments None recorded. Lab None recorded. Referral None recorded. Procedures None recorded. Surgeries robotic assisted hysterectom y with salpingecto my (SURG) 2022 023 [facility], [address], [place], [address], 3 16:36:07 Imaging None recorded. Medication Orders None recorded. Patient TargetsNo targets recorded. Patient InstructionsNo instructions recorded. Reason for Referral None Reported. Results Created Date Observation Date Name Description Value Unit Range Abnormal Flag Note LastModifiedBy Organization Detail LastModifiedTime 11/22/19 23 11/22/2022 SURGI [facility] PATHO LOGY surgical pathology SEE RESULT S BELOW CASE REPOR T: Surgi nyasia Patho logy Repor t Case: [id number] Autho jeanine sorensen Provi josue: Beata Moreland MD Colle cted: 11/22 1653 Order ing Locat ion: [place] Path[facility] [place] Recei iram: 11/23 0755 Patho logis t: Jet Fall MD Speci men: Endoc ervix , ECC FINAL DIAGN OSIS: Endoc ervix , curet tage: -Free -floa ting fragm ents of ectoc ervic al tissu e with high- grade squam ous intra epith elial lesio n (TY- 2/3), confi rmed with p16 immun ohist ochem ical stain ing. Elect tuyetadan vincent d by Jet Fall MD on 2022 at 8:18 AM ----- ----- ----- ----- ----- ----- ----- ----- ----- ----- ----- ----- ----- ----- ----- ----- ----- ---- CLINI NYASIA INFOR MATIO N: n87.9 MICRO SCOPI C DESCR IPTIO N: A micro scopi c exami natio n was perfo rmed. This test was devel oped and its perfo rmanc e rashel cteri stics deter mined by [facility]. It has not been clear ed or appro iram by the U. S. Food and Drug Admin istra tion. The FDA has deter mined that such clear ance or appro flor is not neces kathy. This test may be used for clini nyasia purpo se. It shoul d not be regar ded as inves tigat ional or for resea rch. This labor atory is certi fied under the Clini nyasia Labor atory Impro vemen t Amend ments of 1987 (CLIA ) as quali fied to perfo rm high compl exity clini nyasia labor atory testi ng. In cases which have decal cifie d tissu es, the resul ts shoul d be inter prete d with cauti on given the possi bilit y of false negat darrel. The posit hoa contr ols demon strat e appro priat e posit hoa stain ing. The known tissu e negat hoa contr ols are negat hoa. The non-i mmune serum contr ol was non-r eacti ve. GROSS DESCR IPTIO N: A. Endoc ervix . The speci men is label ed with the patie nt's name, demog raphi cs and ECC . Recei iram in forma timi and on a biops y brush is a 2.0 x 1.4 x 0.2 [address] ag[address] gate of red-t an tissu e and mucus . It is submi tted all in one casse tte. Gross ed by Christi Armas on Not Available [facility] (Lab) [address], [place], [address], 11/27/2022 11:21:56 11/22/19 23 11/22/2022 IMAGE GUIDE D PAP AND HPV REGAR DLESS image guided Pap, HPV regardless of Pap result SEE RESULT S BELOW abnormal CASE REPOR T: Cytol ogy Gynec ologi nyasia Repor t Case: [id number] Autho jeanine g Provi josue: Beata Moreland MD Colle cted: 11/22 1653 Order ing Locat ion: [place] Patho logy Recei iram: 11/23 0755 First Scree n: Yane Strange Patho logis t: Bright Recio rd, MD Speci men: Diagn ostic Pap - Image d, Cervi x STATE MENT OF ADEQU ACY: Satis facto ry for evalu ation Trans forma tion zone compo nent prese nt FINAL DIAGN OSIS: Epith elial Cell Abnor malit y, Squam ous Cell: Atypi nyasia squam ous cells canno t exclu de a high- grade squam ous intra epith elial lesio n (ASC- H). Backg round of low-g rade squam ous intra epith elial lesio n (LSIL ). Elect soren santana carlton d by Bright Recio rd, MD on 2022 at 10:19 AM ----- ----- ----- ----- ----- ----- ----- ----- ----- ----- ----- ----- ----- ----- ----- ----- ----- ---- HPV RESUL TS: HPV mRNA E6/E7 : Posit hoa - HPV mRNA Detec tremaine HPV GENOT YPE 16 (JENNIFER) : Not Detec tremaine HPV GENOT YPE 18/45 (JENNIFER) : Not Detec tremaine NOTE: This high risk HPV mRNA assay detec ts fourt een high- risk HPV types (16, 18, 31, 33, 35, 39, 45, 51, 52, 56, 58, 59, 66, 68) witho ut diffe renti ation . This assay can diffe renti ate HPV 16 from HPV 18/45 , but does not diffe renti ate betwe en HPV 18 and HPV 45. A negat hoa HPV 16, 18/45 genot ype assay resul t does not exclu de the possi bilit y of cytol ogic abnor malit ies or of futur e or under lying TY 1, TY 3 or cance r. COMME NT: Note: This speci men was revie wed by a Cytot echno logis t and/o r Patho logis t (as indic ated in this repor t) after evalu ation using the Thinp rep Imagi ng Syste m. CLINI NYASIA INFOR MATIO N: Menst rual Statu s: LMP (if appli cable ): Clini nyasia Histo ry/Pr eviou s Pap: Type of Neopl maggie (if appli cable ): Signi fican t Clini nyasia Findi ngs: Other Histo ry: Hormo josé miguel (if appli cable ): SUGGE STED FOLLO W-UP: Follo w up as warra nted, based on curre nt guide lines and indiv idual patie nt consi derat ions. Not Available [facility] (Lab) [address], [place], [address], 11/27/2022 11:21:56 Result Notes None recorded. Problems Name Problem SNOMED Code Status Onset Date Resolution Date Notes Provider Name and Address Organization Details Recorded Time Speciali zed medical examinat ion Completed 201304/20/2021 Routine gynecolo gical examinat ion;Prac david ID: 0001 Deborah [facility] 11:59:03 Pregnanc y test negative [id number] Completed 201304/20/2021 Negative Pregnanc y Test;Pra ctice ID: 0001 Deborah Cooper [facility], [facility] 11:59:00 Screenin g for malignan t neoplasm of cervix Completed 201304/20/2021 Pap Smear;Pr actice ID: 0001 Deborah Cooper [facility] 11:59:01 Insertio n of intraute rine contrace ptive device Completed 201304/20/2021 INSERTIO N OF IUD;Prac david ID: 0001 Deborah Cooper [facility], [facility] 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 11:58:54 Dyspareu lori [id number] Completed 201304/20/2021 Dyspareu lori;Elian rded Elsewher e: No Locat ion: [facility] S ource: EHR Bander And Cellophaner Machine Helper samanta: N Practi ce ID: 0001 Dandre lable Time: 03:45:00 PM Deborah Cooper [facility] 11:58:55 Ill-defi óscar intestin al infectio n Completed 201204/20/2021 No Show Fee;Prac david ID: 0001 Deborah Cooper [facility] 11:58:57 Anticoag ulant therapy Active 2021 FELIX Urrutia [address], [place], [address], [facility] 13:52:30 History of deep vein thrombos is [id number] Active 2021 FELIX Urrutia [address], [place], [address], [facility] 13:52:40 Problem Notes None recorded. Procedures Surgical History Date Name Laterality Status Provider Name and Address Organization Details Recorded Time 01/10/20 23 ROBOTIC ASSISTED HYSTERECTOMY WITH SALPINGECTOMY (SURG) completed Karli Mcfarland [facility] 01/10/2023 09:49:16 06/15/20 22 LEEP completed Julius Moreland MD [address], [place], [address], [facility] 06/15/2022 14:55:32 06/15/20 22 LEEP completed Sierra Wilson [facility] 01/16/2023 10:29:45 02/24/20 22 Colposcopy completed Julius Moreland MD [address], [place], [address], [facility] 02/23/2022 15:37:42 02/24/20 22 Colposcopy completed Sierra Wilson [facility] 03/09/2022 14:15:27 02/02/20 22 IUD Removal completed FELIX Urrutia [address], [place], [address], [facility] 02/01/2022 14:15:16 02/02/20 22 IUD Insertion completed FELIX Urrutia [address], [place], [address], [facility] 02/01/2022 14:14:59 01/26/20 22 Date of Last Pap Smear completed Sierra Wilson [facility] 02/23/2022 15:14:03 12/14/19 12 Colposcopy completed Sierar Wilson [facility] 02/23/2022 17:45:27 09/30/19 12 Colposcopy completed Deborah Cooper [facility] 04/20/2021 11:59:28 Imaging Results None recorded. Procedure Notes None recorded. Medical Equipment None Reported. Allergies Allergen ID Allergen Name Allergen Category Reaction Reaction Severity Criticality Documentation Date Start Date Code Code System Note Provider Name and Address Organization Details Recorded Time Product containin g penicilli n (product) medicatio n Not available Not available Not available 09/16/2020 30052 8001 SNOMED Comme nt: [facility]; Not Available [facility] 0 14:24:29 39684 vortioxet ine medicatio n Not available Not available Not available 02/01/2022 21497 99 RxNorm Deborah Lamb [facility] 2 13:44:22 Medications Name Sig Start Date Stop Date Status Note LastModified by Organization Details LastModified Time Mirena 21 mcg/24 hr (up to 8 years) 52 mg intrauter ine device Insert 01/16 completed Prescrib ed Elsewher e: No Locat ion: Kandice henley [facility] odify By: matthew quinn DateTime : 12/30/19 19 09:24:43 PM Not Available Not Available Not Available Celexa 10 mg tablet take 1 tablet by oral route every day 12/14 completed Prescrib ed Elsewher e: Yes [facility] By: freddie lemosuntdian DateTime : 11/01/19 12 10:30:00 AM Not Available Not Available Not Available Percocet 2.5 mg-325 mg tablet take 1 tablet by oral route every 6 hours as needed 01/25 completed Prescrib ed Elsewher e: Yes Loca tion: [facility] lory [facility] odify By: valeriano seay DateTime : 12/14/19 12 09:45:00 AM Not Available Not Available Not Available clindamyc in HCl 300 mg capsule TAKE ONE CAPSULE BY MOUTH FOUR TIMES DAILY UNTIL ALL TAKEN 11/22 completed Not Available Not Available Not Available ibuprofen 800 mg tablet TAKE 1 TABLET BY MOUTH 2 HOURS BEFORE THE PROCEDUR E 11/22 completed Not Available Not Available Not Available fluconazo le 150 mg tablet TAKE 1 TABLET BY MOUTH EVERY DAY FOR 1 DAY 01/25 completed Not Available Not Available Not Available benzonata te 200 mg capsule TAKE 1 CAPSULE BY MOUTH EVERY 8 HOURS NEEDED FOR COUGH active Not Available Not Available No t Available hydrocodo ne 5 mg-acetam inophen 325 mg tablet TAKE 1 TO 2 TABLETS BY MOUTH EVERY 6 HOURS NEEDED FOR PAIN 05/23 completed Not Available Not Available Not Available ondansetr on HCl 8 mg tablet TAKE 1 TABLET BY MOUTH 2 HOURS BEFORE THE PROCEDUR E 11/22 completed Not Available Not Available Not Available meloxicam 15 mg tablet TAKE 1 TABLET BY MOUTH EVERY DAY active Not Available Not Available No t Available dextroamp hetamine- amphetami ne 10 mg tablet TAKE 1 TABLET BY MOUTH EVERY AFTERNOO N 11/22 completed Not Available Not Available Not Available sertralin e 100 mg tablet TAKE 1 TABLET BY MOUTH EVERY DAY IN THE MORNING 05/23 completed Not Available Not Available Not Available quetiapin e 200 mg tablet TAKE 1 TABLET BY MOUTH EVERY DAY AT BEDTIME 01/25 completed Not Available Not Available Not Available acetamino phen 300 mg-codein e 30 mg tablet TAKE 1 TABLET BY MOUTH EVERY 6 HOURS NEEDED FOR PAIN 11/22 completed Not Available Not Available Not Available hydrocodo ne 10 mg-acetam inophen 325 mg tablet TAKE 1 TABLET BY MOUTH 2 HOURS BEFORE THE PROCEDUR E 11/22 completed Not Available Not Available Not Available aspirin 81 mg tablet,de layed release TAKE 1 TABLET BY MOUTH TWICE DAILY 01/25 completed Not Available Not Available Not Available tramadol 50 mg tablet TAKE 1 TABLET BY MOUTH EVERY 4 TO 6 HOURS NEEDED FOR PAIN 11/22 completed Not Available Not Available Not Available quetiapin e 100 mg tablet TAKE 1 TABLET BY MOUTH EVERY DAY AT BEDTIME FOR 7 DAYS 01/25 completed Not Available Not Available Not Available oxycodone -acetamin ophen 5 mg-325 mg tablet TAKE 1 TABLET BY MOUTH EVERY 4 HOURS NEEDED FOR PAIN 01/25 completed Not Available Not Available Not Available alprazola m 0.5 mg tablet TAKE 1 TABLET BY MOUTH 2 HOURS BEFORE THE PROCEDUR E 11/22 completed Not Available Not Available Not Available dextroamp hetamine- amphetami ne ER 20 mg 24hr capsule,e xtend release TAKE 1 CAPSULE BY MOUTH EVERY MORNING 11/22 completed Not Available Not Available Not Available Xanax 0.25 mg tablet take 1 tablet by oral route 3 times every day 12/13 completed Prescrib ed Elsewher e: Yes Loca tion: [facility] odify By: valeriano seay DateTime : 11/01/19 12 10:30:00 AM Not Available Not Available Not Available cephalexi n 500 mg capsule 01/25 completed Not Available Not Available Not Available paroxetin e 30 mg tablet TAKE 1 TABLET BY MOUTH DAILY 11/22 completed Not Available Not Available Not Available paroxetin e 20 mg tablet TAKE 1 TABLET BY MOUTH DAILY 01/25 completed Not Available Not Available Not Available neomycin- polymyxin -dexameth 3.5 mg/mL-10, 000 unit/mL-0 .1% eye drops SHAKE LIQUID AND INSTILL 1 DROP IN LEFT EYE FOUR TIMES DAILY 05/23 completed Not Available Not Available Not Available dextroamp hetamine- amphetami ne 20 mg tablet TAKE 1 TABLET BY MOUTH EVERY MORNING AND 1/2 TABLET EVERY AFTERNOO N active Not Available Not Available No t Available Wellbutri n 75 mg tablet take 1 tablet by oral route 3 times every day 11/01 completed Prescrib ed Elsewher e: Yes Loca tion: [facility] odify By: ian quinn DateTime : 10/28/19 12 10:40:10 PM Not Available Not Available Not Available diclofena c sodium 75 mg tablet,de layed release TAKE 1 TABLET BY MOUTH TWICE DAILY WITH FOOD 05/23 completed Not Available Not Available Not Available Depakote 125 mg tablet,de layed release take 2 tablet by oral route 2 times every day 11/22 completed Prescrib ed Elsewher e: Yes Loca tion: [facility] odify By: vickiehar tz Encou nter DateTime : 10/28/19 12 10:40:10 PM Not Available Not Available Not Available albuterol sulfate HFA 90 mcg/actua tion aerosol inhaler 01/25 completed Not Available Not Available Not Available paroxetin e 40 mg tablet TAKE 1 TABLET BY MOUTH DAILY active Not Available Not Available No t Available Vitamin D2 1,250 mcg (50,000 unit) capsule take 1 capsule by oral route every week 12/14 completed Prescrib ed Elsewher e: Yes Loca tion: [facility] odify By: freddie Henley ncounter DateTime : 12/14/19 12 09:45:00 AM Not Available Not Available Not Available naproxen 500 mg tablet TAKE 1 TABLET BY MOUTH TWICE DAILY NEEDED. ALTERNAT E WITH TYLENOL AND OXYCODON E. 01/25 completed Not Available Not Available Not Available oxycodone 5 mg tablet 01/25 completed Not Available Not Available Not Available hydroxyzi ne pamoate 25 mg capsule TAKE 1 CAPSULE BY MOUTH TWICE DAILY DIRECTED 01/25 completed Not Available Not Available Not Available aripipraz ole 10 mg tablet TAKE 1 TABLET BY MOUTH AT BEDTIME 11/22 completed Not Available Not Available Not Available aripipraz ole 20 mg tablet TAKE 1 TABLET BY MOUTH DAILY active Not Available Not Available No t Available Lexapro 5 mg/5 mL oral solution take 10 millilit er by oral route every day 11/01 completed Prescrib ed Elsewher e: Yes Loca tion: [facility] odify By: ian mullerer DateTime : 10/28/19 12 10:40:10 PM Not Available Not Available Not Available Tri-Sprin chucho (28) 0.18 mg(7)/0.2 15 mg(7)/0.2 5 mg(7)-0.0 35 mg tablet take 1 tablet by oral route every day 12/14 completed Prescrib ed Elsewher e: No Locat ion: [facility] odify By: freddie lemosunter DateTime : 10/23/19 13 10:44:30 AM Not Available Not Available Not Available Symbicort 160 mcg-4.5 mcg/actua tion HFA aerosol inhaler 05/23 completed Not Available Not Available Not Available Eliquis 5 mg tablet 01/25 completed Not Available Not Available Not Available ID NOW COVID-19 Test Kit TEST DIRECTED TODAY active Not Available Not Available No t Available Breztri Aerospher e 160 mcg-9mcg- 4.8mcg/ac tuation HFA aerosol inhaler INHALE 2 PUFFS BY MOUTH TWICE DAILY. RINSE MOUTH AFTER USE 11/22 completed Not Available Not Available Not Available Vitals Date Recorded Body height Body mass index (BMI) Body weight Systolic blood pressure Diastolic blood pressure Provider Name and Address Organization Details Last Updated DateTime 11/30/2022 160.02 cm 37.4 kg/m2 61271.99 g 124 mm[Hg] 78 mm[Hg] [facility] 3 15:05:18 Date Recorded Body height Body mass index (BMI) Body weight Systolic blood pressure Diastolic blood pressure Provider Name and Address Organization Details Last Updated DateTime 01/03/2023 160.02 cm 36.7 kg/m2 12014.62 g 118 mm[Hg] 74 mm[Hg] [facility] 3 14:24:21 Date Recorded Body height Body mass index (BMI) Body weight Systolic blood pressure Diastolic blood pressure Provider Name and Address Organization Details Last Updated DateTime 01/16/2023 160.02 cm 36.7 kg/m2 62708.62 g 138 mm[Hg] 62 mm[Hg] [facility] 3 14:20:22 Date Recorded Body height Body mass index (BMI) Body weight Systolic blood pressure Diastolic blood pressure Provider Name and Address Organization Details Last Updated DateTime 05/23/2023 160.02 cm 36 kg/m2 99722.25 g 110 mm[Hg] 75 mm[Hg] [facility] 3 14:30:47 Social History Question Answer Notes LastModified by Organizat ion Details LastModified Time Tobacco Smoking Status Current Every Day Smoker Deborah Lamb [facility] 02/01/2022 13:44:42 Do You Have An Advance Directive? No Information not available 02/01/2022 How Many Years Have You Consumed Alcohol? 25 Information not available 02/01/2022 Are You Blind Or Do You Have Difficulty Seeing? No Information not available 04/20/2021 What Is Your Level Of Caffeine Consumption? Occasional Information not available 04/20/2021 How Much Tobacco Do You Chew? None Information not available 02/01/2022 In The 14 Days Before Symptom Onset, Have You Had Close Contact With A Laboratory-confir med COVID-19 While That Case Was Ill? No Information not available 02/01/2022 In The 14 Days Before Symptom Onset, Have You Had Close Contact With A Person Who Is Under Investigation For COVID-19 While That Person Was Ill? No Information not available 02/01/2022 Have You Been To An Area Known To Be High Risk For COVID-19? No Information not available 02/01/2022 Are You Deaf Or Do You Have Serious Difficulty Hearing? Yes Information not available 02/01/2022 What Type Of Diet Are You Following? REGULAR Information not available 04/20/2021 What Is The Highest Grade Or Level Of School You Have Completed Or The Highest Degree You Have Received? [id number] Information not available 02/01/2022 Are There Any Guns Present In Your Home? No Information not available 02/01/2022 Do You Use Protection During Sex? No Information not available 02/01/2022 Do You Use Your Seat Belt Or Car Seat Routinely? Yes Information not available 04/20/2021 Do You Have Smoke And Carbon Monoxide Detectors In Your Home? Yes Information not available 04/20/2021 At What Age Did You Start Smoking Tobacco? 14 Information not available 02/01/2022 How Much Tobacco Do You Smoke? 1 PPD Information not available 02/01/2022 Do You Use Sunscreen Routinely? No Information not available 02/01/2022 Have You Used IV Drugs? No Information not available 02/01/2022 Sex: Unknown Functional Status Question Answer Note LastModified by Organizat ion Details LastModified Time Do you use any illicit or recreational drugs? No Information not available 04/20/2021 What is your level of alcohol consumption? Occasional Information not available 04/20/2021 Do you have difficulty walking or climbing stairs? No Information not available 02/01/2022 Are you able to walk? YESWOREST Information not available 04/20/2021 Are you able to care for yourself? 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 No Information not available 02/01/2022 What is your exercise level? Occasional Information not available 04/20/2021 Mental Status Question Answer Note LastModified by Organization D etails LastModified Time Do you feel stressed (tense, restless, nervous, or anxious, or unable to sleep at night)? [id number] Information not available 02/01/2022 Family History Relationship Description Onset Age of this Age Resolved Age Notes LastModified by Organization Details LastModified Time Brother Cystic fibrosis [email or web address] Not available 2021 13:37:08 Brother Depressive disorder Not available 2020 12:00:48 Father Alcoholism [email or web address] Not availab le 02/01/2022 13:37:08 Maternal Grandmother Malignant neoplasm of ovary Not available 2020 12:01:12 Maternal Grandmother Malignant tumor of cervix Not available 2020 12:01:20 Maternal Grandmother Migraine [email or web address] Not available 01/2022 13:37:08 Mother Disorder of thyroid gland Not available 2020 12:01:31 Mother Diabetes mellitus Not available 2020 12:01:36 Paternal Aunt Malignant neoplasm of lung Not available 2020 12:01:48 Paternal Grandmother Headache [email or web address] Not available 01/2022 13:37:08 Paternal Grandmother Malignant tumor of breast Not available 2020 12:02:23 Paternal Grandmother Malignant neoplasm of lung Not available 2020 12:02:28 Medical History Condition Response Anxiety Disorder Y History of abnormal pap Y Headaches Y Depression/ depression Y Gynecological History Statement/Question Response Abnormal Pap Y On BCP's at Conception? Y N STIs/STDs N HPV Vaccine Y Colposcopy 09/30/2011 Current Control Method Hysterectom y Age at First Child 22 Date of control 12/14/2013 Sexually Active? Y IUD Menses Monthly N Age of first menstrual cycle 15 Date of Last Pap Smear 01/25/2022 Sexual Problems? N LMP Unknown N Obstetrics History GPAL:G 2 P 1 0 1 1 Type Value Full Term 1 Spontaneous 1 Living 1 Total 2 Past Encounters Encounter ID Performer Location Encounter Start Date Encounter Closed Date Diagnosis/Indication Diagnosis SNOMED-CT Code Diagnosis ICD10 Code Diagnosis Note [id number] FELIX U[facility] [address] [address] 01/25/2022 14:44:56 01/25/2022 15:36:59 Screening for malignant neoplasm of breast 442541714 Z12.39 Contracept ion care management 462556703 Z30.9 Venereal d isease screening 501241082 Z11.3 Sexually t ransmitted infectious disease 3891025 A64 Gynecologi c examination 22263200 Z01.419 Suggested Calcium with Vitamin D 1200-1500m g daily. Patient advised to get an annual flu shot in the fall and she could obtain at [facility] or [facility] care clinic. Also to obtain TDap vaccinatio n if you have not had one in the last 10 years. Recommend yearly mammograms . Encouraged monthly self breast exams. Encourage safe sexual practices, to use condoms and limit partners if not already in a monogamous relationsh ip. Engage in daily exercise of low impact aerobic exercise 45-60 minutes 4-5 times weekly. Avoid tobacco and illicit drugs as well as using moderation with alcohol intake less than 1-2 8 oz beverages daily. This lifestyle behavior pattern will lead to less health conditions and longer life span. If BMI greater than 25 weight watchers or dietary consult advised. All questions have been answered. Patient appears to understand informatio n, but if you have any questions please call or respond to this email. Mirena IUD since 2013, she desires to continue this method of control. She will schedule for removal/in sertion appointmen t. She will need a bhcg the day prior to removal/in sertion. She should use condoms or abstain from intercours e until removal/in sertion appointmen t.She broke her ankle a few months ago, had surgery and developed a DVT. On blood thinners currently. Hx of abnormal pap HPV/ASCUS with colpo in 2011. Last pap in 2013 normal.Darrell mogram order givenUTD with routine labs with PCPNo family hx of breast or ovarian cancerRTC for IUD appointmen t. [id number] FELIX Urrutia [facility] [address] [address] 02/01/2022 13:36:45 02/01/2022 14:17:02 Insertion of intrauterine contraceptive device [id number] Z30.430 IUD removal/in sertion She has been counseled on all of the r/b/a of placement of an intrauteri ne device that include but are not limited to uterine perforatio n, injury to cervix, vagina, bladder, and bowel.Risk s of bleeding due to injury or increased irregular bleeding due to progestin effect of the device. Risks of infection would be increased within the first 21 days of placement with concommita nt cervicitis . She understand s that the device will need to be removed in this instance due to increased risk of Pelvic inflammato ry disease. Patient is aware she is at higher risk for STD and if contracted she could lose her fertility. Pt is aware that if occurs that she should contact office immediatel y to rule out ectopic which could be life threatenin g. IUD will also need to be removed and this could cause miscarriag e. Patient also informed that in the event her strings are absent or embedded at the time of removal she may need to have the IUD surgically removed. She was informed of the above and properly consented. IUD placed w/o complicati on. Patient should return to office after next period to check for string placement. Patient to expect irregular bleeding but should be seen in the ED if bleeding increases to soaking a pad an hour for at least 2 hours. She verbalized understand ing. Uses IUD (intrauterine device) contraception [id number] Z97.5 [facility] [id number] Z30.9 [id number] Julius Moreland MD [facility] [address] [address] 02/23/2022 14:46:55 02/23/2022 15:59:12 Abnormal cervical Papanicolaou smear [id number] R87.619 colposcopy performed. Unsatisfac tory, lesions, biopsy, [id number] FELIX Urrutia [facility] [address] [address] 03/08/2022 13:57:49 03/08/2022 14:44:47 IUD check [id number] Z30.431 Here today for IUD string checkIs doing well since insertion, no AUB, pains, or abnormal dischargeS trings visualized on examDiscus sed approved to prevent for up to 7 yearsHas a f/u appointmen t tomorrow with to discuss colposcopy results. Time spent in visit is a total of 25 mins with at least 50% of visit consisting of counseling and review of plan of care. [id number] Julius Moreland MD [facility] [address],[place] [address] 03/09/2022 14:02:18 03/09/2022 15:29:22 Preoperative state [id number]|2025-02-09 14:30:00|2025-02-09 14:30:00|NEURO_ITS|NASEERR|Health Information Management|[id number]|" Impression: # Complains of numbness of right hand. Not diabetic. # Right ulnar neuropathy across the elbow. # No Carpal Tunnel Syndrome. # Normal needle/EMG exam. # Only right hand done as per patients request. Nerve Conduction Studies Anti Sensory Summary Table Stim Site NR Peak (ms) P-T Amp (µV) Site1 Site2 Delta-P (ms) Dist (cm) Nick (m/s) Right Median Anti Sensory (2-3nd Digit) Wrist 2.7 86.3 Wrist 2-3nd Digit 2.7 14.0 52 Wrist 2.5 72.3 Wrist 2-3nd Digit 2.7 14.0 52 Right Radial Anti Sensory (Base 1st Digit) Wrist 2.3 26.8 Wrist Base 1st Digit 2.3 0.0 Right Ulnar Anti Sensory (5th Digit) Wrist 2.2 54.1 Wrist 5th Digit 2.2 14.0 64 Motor Summary Table Stim Site NR Onset (ms) O-P Amp (mV) Site1 Site2 Delta-0 (ms) Dist (cm) Nick (m/s) Right Median Motor (Abd Poll Brev) Wrist 3.2 6.0 Elbow Wrist 4.4 26.0 59 Elbow 7.6 5.5 Right Ulnar Motor (Abd Dig Minimi) Wrist 2.3 4.6 A Elbow Wrist 5.3 26.0 49 A Elbow 7.6 4.2 B Elbow Wrist 3.8 19.0 50 B Elbow 6.1 3.0 F Wave Studies NR F-Lat (ms) L-R F-Lat (ms) Right Median (Mrkrs) (Abd Poll Brev) 27.27 Right Ulnar (Mrkrs) (Abd Dig Min) 26.49 EMG Side Muscle Nerve Root Ins Act Fibs Amp Dur Recrt Comment Right 1stDorInt Ulnar C8-T1 Nml Nml Nml Nml Nml Right Ext Indicis Radial (Post Int) C7-8 Nml Nml Nml Nml Nml Right Ext Digitorum Radial (Post Int) C7-8 Nml Nml Nml Nml Nml Right BrachioRad Radial C5-6 Nml Nml Nml Nml Nml Right PronatorTeres Median C6-7 Nml Nml Nml Nml Nml Right Abd Poll Brev Median C8-T1 Nml Nml Nml Nml Nml Right ABD Dig Min Ulnar C8-T1 Nml Nml Nml Nml Nml Right FlexPolLong Median (Ant Int) C7-8 Nml Nml Nml Nml Nml Right Abd Poll Long Radial (Post Int) C7-8 Nml Nml Nml Nml Nml MTDD"
--- OUTSIDE RECORDS SUMMARY | 2025-02-09 14:09 | XMS_ITS | Encounter Summary ---
Author Organization [facility] Address [address] [place] [id number] Care Team Providers Care Grief Counsellor Name Role Phone Roseanna Bernardo Kristen [facility] Primary Care Provider + Encounter Details Date Type Department Care Team (Late st Contact Info) Description 10/12/[address] [facility] [place] [address] Michael Bautista MD [address] [facility] [place] 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 Substance Use Topics Alcohol use: Yes [...] complications. Patient understands and wishes to proceed. [employer]IVE [employer] SALES MANAGER documented in this encounter Plan of Treatment Not on file documented as of this encounter Visit Diagnoses Not on filedocumented in this encounter Additional Health Concerns Assessment Noted Time PHQ-9 Depression Total Score: 0 11/06/19 22 2:44 PM [employer] SAL[employer] MANAGER documented as of this encounter Care Teams Grief Counsellor Relationship Specialty Start Date End Date Roseanna Bernardo, COPY OPERATOR- [address] [address] PCP - General NURSE PRACTITIONER 09/14/21 documented as of this encounter
== END 2025-02-09 13:48 | disposition home or self-care (01) ==
PROVIDERS: PCP Family Medicine; Visit Provider Plastic Surgery
DX: G56.21 Lesion of ulnar nerve, right upper limb (principal)
CPT/HCPCS: 95886; 95909